=== PATIENT | male | born 1955 | race Caucasian/White ===

== ENCOUNTER → 2016-11-16 | Outpatient (CLI) | payer OTHER ==
[~2016-11-16] MED LIST: LISI-461 PO; SILD1TAB11 PO; VTMB12UNK
== END | disposition home or self-care (01) ==
LOC: C.LAB 17:41
DX: Z02.83 Encounter for blood-alcohol and blood-drug test (principal)

== ENCOUNTER 2021-10-10 06:12 | Observation (INO) ==
--- NOTE | 2021-10-02 16:01 | Anesthesiology Consultation ---
Date of Service October 02, 2021 Assessment & Plan (1) Encounter for pre-operative examination: - COVID screening: Per assessment on 10/02: No known COVID-19 positive contacts or current COVID-19 related symptoms. Travel screen negative. Patient vaccinated. Surgeon arranging preop COVID testing. Awaiting results. - PCP office visit (08/16/21): "CHEST: clear to auscultation bilaterally, no rales or wheezing.. GI symptoms-etiology is at this point unclear. He could have a mild soldier ring chronic diverticulitis although that would Um mean that he did not have any diverticulitis in May when he had colonoscopy. Another possibility is a chronic infection. It would be unusual for C difficile given the intermittent nature but is still needs to be ruled out. Um other infectious agents also to be ruled out." - S/P Open Right Inguinal hernia repair (12/04/20): Grade view 2, MAC#4, ETT 7.5 at [facility]. No issues noted per post-op anesthesia progress note. Chart Review Chart Review: Acceptable Risk for Surgery (pending evaluation AM DOS) and Patient NOT seen in Pre Admission Testing History Surgery Operation Date: 10/10/21 09:55 Proposed Procedures p Laparoscopic Bowel Resection, Possible Open - Noé Dumont MD, FACS Height/Weight Height: 5 ft 11.5 in Weight: 89.811 kg Allergies Allergy/AdvReac Type Severity Reaction Status Date / Time Sulfa (Sulfonamide AdvReac Mild Alison bar Verified 10/02/21 14:40 Antibiotics) sulfamethoxazole AdvReac Mild Alison bar Verified 10/02/21 14:40 [From Bactrim] trimethoprim [From Bactrim] AdvReac Mild Alison bar Verified 10/02/21 14:40 Medications Home Medications Medication Instructions Recorded Confirmed Last Taken lisinopril 20 mg tablet 20 mg PO QAM 11/14/20 10/02/21 12/02/20 07:00 escitalopram oxalate 5 mg tablet 15 mg PO QAM 09/24/21 10/02/21 Unknown (Lexapro) Past Medical History Medical History (Updated 10/02/21 @ 16:17 by Hina Ford) 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 No issues noted per post-op anesthesia progress note. Status post surgery Left salivary gland removal (2013) Social History Smoking Status: Current every day smoker tobacco type: cigarettes Smoking cigarettes per day: 15/day Do You Dip or Chew Tobacco: No Hx Alcohol Use: No Hx Substance Use: No substance use type: does not use Lab Results Anesthesia Preop Results Results Anesthesia Widget: WBC 8.69 K/ul (4.8-10.8) 09/30/21 Hgb 15.7 g/dl (14.0-18.0) 09/30/21 Hct 46.2 % (40.1-51.0) 09/30/21 Plt 192 K/uL (130-400) 09/30/21 Na 138 mmol/L (136-145) 09/30/21 K 4.2 mmol/L (3.5-5.1) 09/30/21 Cl 105 mmol/L (98-107) 09/30/21 CO2 26 mmol/L (21-32) 09/30/21 BUN 13 mg/dl (6-23) 09/30/21 Creat 0.78 mg/dl (0.6-1.4) 09/30/21 Glucose Level 113 mg/dl (70-99(Fasting)) H 09/30/21 Testing Electrocardiogram Date: 09/30/21 NSR with sinus arrhythmia at 67bpm. RBBB. Chest X-Ray Date: 09/30/21 FINDINGS: The lungs are hyperexpanded with mild apical predominant emphysematous changes. No pneumothorax. No pleural fusions. The heart is normal in size. Mild interstitial thickening at the lung bases favors vascular crowding. No new focal lung consolidations to suggest pneumonia. No evidence for pulmonary edema. IMPRESSION: No significant change compared to the prior study. No acute process. Mild emphysema again noted.
[~2021-10-10 06:12] MED LIST changes: -LISI-461 PO; +LR 15ML/HR IV SCH; -SILD1TAB11 PO; -VTMB12UNK
--- NOTE | 2021-10-10 07:44 | History & Physical Bridge Note ---
Date of Service October 10, 2021 History & Physical Bridge Note I have examined the patient, reviewed the History & Physical and in the interval since the performance of the History & Physical I have noted the following changes of clinical significance: no changes noted All questions answered Significant other asked if I have her operated on a carcinoid before I looked at her and told her that I have been in surgery 50 years The patient understood
[2021-10-10] MEDS ORDERED: fentaNYL citrate 100 MCG/2 ML VIAL ONE ×3 (07:52→10:57)
[2021-10-10] MEDS ORDERED: LIDOCAINE 2% MPF LOCAL 5 ML VIAL INFIL ONE (07:52)
[2021-10-10] MEDS ORDERED: DEXAMETHASONE SOD INJ 4 MG/ML VIAL ONE (07:52)
[2021-10-10] MEDS ORDERED: ROCURONIUM BROMIDE 10 MG/ML 5 ML VIAL IV ONE ×9 (07:52→11:02)
[2021-10-10] MEDS ORDERED: ONDANSETRON INJ 2 MG/ML 2 ML VIAL ONE (07:52)
[2021-10-10] MEDS ORDERED: PROPOFOL IV EMULSION 10 MG/ML 20 ML VIAL IV ONE (07:52)
[2021-10-10] MEDS ORDERED: BUPIVACAINE 0.5 % 5 MG/1 ML MPF 30ML VIAL ONE (07:59)
[2021-10-10] MEDS ORDERED: LABETALOL HCL IV 5 MG/ML 20ML IV PRN (08:48)
[2021-10-10] MEDS ORDERED: ATROPINE SULFATE 0.1 MG/ML 10ML SYR IV PRN (08:48)
[2021-10-10] MEDS ORDERED: PHENYLEPHRINE 100MCG/ML 5ML SYR IV PRN (08:48)
[2021-10-10] MEDS ORDERED: ONDANSETRON INJ 2 MG/ML 2 ML VIAL IV PRN ×2 (08:48→14:18)
[2021-10-10] MEDS ORDERED: MEPERIDINE HCL 25 MG/ML CARP/VIAL IV PRN (08:48)
[2021-10-10] MEDS ORDERED: ePHEDrine sulfate 50 MG/ML AMP IV PRN (08:48)
[2021-10-10] MEDS ORDERED: ePHEDrine sulfate 50 MG/ML AMP ONE (08:49)
[2021-10-10] MEDS ORDERED: SUGAMMADEX SODIUM 200 MG/2 ML VIAL IV ONE (09:05)
[2021-10-10] MEDS ORDERED: ceFAZolin 2000MG 2,000 MG/15 ML SYR IV ONE (10:16)
[2021-10-10] MEDS ORDERED: PHENYLEPHRINE 100MCG/ML 5ML SYR ONE (10:21)
--- NOTE | 2021-10-10 11:49 | Post Operative Brief Note ---
PG Immediate Post Op with CF Date of Surgery October 10, 2021 Pre & Post Diagnosis Operation Date: 10/10/21 08:15 Pre-Op Diagnosis: Bowel Lesion Terminal Ileum Post-Op Diagnosis: Bowel Lesion Terminal Ileum I identified the patient and participated in the time-out.: Yes Procedure Operation Date: 10/10/21 08:15 Actual Procedures p Laparoscopic Assisted Small Bowel Resection with Primary Anastomsis and Biopsy Left External Iliac Node(Not Applicable) - Noé Dumont MD, FACS Surgeon Noé Dumont MD, FACS Card Hand grecia kendrick Estimated Blood Loss 50 Findings Consistent with Post-Op Diagnosis Specimens Specimen Description: Culture 1: Urine A: Small Bowel Long Suture Mesenteric Short Suture Intraluminal B: Small Bowel Long Suture Line of Resection Distal to the Previous Line of Resection C: Small Bowel Proximal Line of Resection Frozen A: Left Iliac Node Drains Sorenson Catheter (inserted after induction of anesthesia by Stephenie Quezada D.O. without difficulty)
--- NOTE | 2021-10-10 12:14 | Operative Report ---
PG Post Operative Report Pre & Post Diagnosis Operation Date: 10/10/21 08:15 Pre-Op Diagnosis: Bowel Lesion Terminal Ileum Post-Op Diagnosis: Bowel Lesion Terminal Ileum I identified the patient and participated in the time-out.: Yes Procedure Operation Date: 10/10/21 08:15 Actual Procedures p Laparoscopic Assisted Small Bowel Resection with Primary Anastomsis and Biopsy Left External Iliac Node(Not Applicable) - Noé Dumont MD, FACS The patient was brought into the operating theater supine position general endotracheal anesthesia systemic antibiotics on board Sorenson catheter inserted the abdomen was prepped Betadine solution properly draped a timeout was had patient was identified this point we made a small incision supraumbilically above the transverse incision that he has an umbilical hernia repair years ago and through the abdomen a Veress needle followed by CO2 followed by the scope this point intra-abdominal pressure was held at about 15 mmHg using the camera was circumferentially looped on the anterior abdominal wall with no obvious implants that we were suspicious that this may been a carcinoid and possibly metastatic the liver grossly was normal on the surface there was no implants went down towards the pelvis what we could see there was no implants although radiographically there was not implant in the left pelvic area then using a grasper and a 5 mm right upper quadrant port we elevated the omentum and retracted cephalad we then were able to identify the small bowel just inferior to the transverse colon and elevating the small bowel we can see indentation in the small bowel and the mesentery to it having a sclerosing pattern this was narrowed area where radiographically seem to have an intraluminal growth and with the spindle cell appearance of the mesenteric node suspicious for a carcinoid at this point I freed up the terminal ileum dividing the white line of Toldt to mobilize the cecum so we can evaluate and palpate that area since radiographically there may have been something intraluminal and terminal ileum having done this I elected to convert to an open procedure which we made an incision just to the right of the umbilicus and extending in the midline retirement up to the xiphoid we entered the peritoneal cavity and at this point we were able to easily appreciate and extracted out of the abdomen the loop of bowel that had the intraluminal growth and on the mesenteric surface we can see some retraction of the serosa as a spindles process once we extracted this completely having identified the area marked it with a suture we then palpated from cecum around the small bowel all the way to the ligament of Treitz palpating at and milking it to see if there was another intraluminal lesions that we cannot appreciate in further exploring the abdomen patient has a hard mass at the sigmoid rectal area he did not feel suspicious it almost felt if he had a pair inflammatory process from diverticular nature in fact he had a CAT scan just about a month or so ago that did not show any mass there the area that we felt was approximately 6 cm in size diameter and appeared to be on the mesenteric surface of the sigmoid rectal junction we extended the incision further in clinic umbilically and were able to identify an area that had been seen by CAT scan and the left iliac chain it was sclerosed to the peritoneum and retroperitoneal area the size about a centimeter and a half we then were able to extract this and sent for frozen section and and confirmed on a size and history and the presentation that this was likely a metastatic carcinoid at this point we had extracted the loop of bowel which was in the mid jejunal area out of the abdomen used a WARD we were able to resect the small bowel approximately 10 to 15 cm proximal the area that we palpated intraluminally and distally and about 20 cm in the same fashion we used WARD stapler to divide the small bowel that we scored the mesenteric to that segment all the way down to almost to the root of the mesentery divided with hemostats ligated with 2-0 silk in this area we could feel that sclerosed area and also felt a palpable node which is about 2 cm and this would be included with the specimen the 2 ends of the staple line was then oversewn with 3-0 silk suture after we closed the mesentery with interrupted 3-0 silk we created a [id number] anastomosis using 3-0 silk i interrupted the outer layer and 3-0 chromic in the layer only were done I was unhappy with the distal aspect of the small bowel on the anastomosis it appeared viable but it was slightly congested we placed it in the abdomen and seem to be improved but I was concerned about this therefore I took down the anastomosis and we did an area that felt more viable resecting more of the small bowel with a WARD oversewn the staple line the end and a [id number] anastomosis surgery was done with 3-0 silk outer layer 3-0 chromic in a layer we closed the mesentery to avoid any openings this anastomosis much much better we returned into the abdomen at this point labs were all extended and NG tube was positioned in the stomach I could palpated at about 60 cm from the nasal opening and the abdomen was closed with a #1 PDS starting 1 cephalad and 1 code that time the middle 2-0 Vicryl subcutaneous tissue amna for skin edges dressing was applied procedure was tolerated well by the patient estimate blood loss 50 cc the patient was taken recovery room in good condition Addendum Antonietta Manriquez present throughout the procedure and helped the retraction and exposure wound closure Addendum spoke with her significant other Germain in the waiting area and described to her the procedure the postoperative care including having oncology see him all questions were answered and I specifically mention that I could palpate something in the sigmoid colon that I would review with the radiologist the latest CAT scan Surgeon Noé Dumont MD, FACS Qualitative Executive Researcher grecia kendrick Estimated Blood Loss 50 Findings Consistent with Post-Op Diagnosis 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 Any exceptions are noted below.
[2021-10-10] MEDS: fentaNYL citrate 100 MCG/2 ML VIAL IV PRN ×4 (12:21→12:36)
[2021-10-10] MEDS: HYDROmorphone INJ 1 MG/ML SYRINGE IV PRN ×8 (12:41→13:44)
[2021-10-10] MEDS ORDERED: ACETAMINOPHEN 1000 MG/100 ML IV IV ONE (13:02)
[2021-10-10] MEDS ORDERED: ACETAMINOPHEN 1,000 MG/100 ML VIAL IV STA (13:06)
--- NOTE | 2021-10-10 14:07 | Anesthesiology Progress Note ---
Date of Service October 10, 2021 Anesthesia Post Procedure Vital Signs Vital Signs: Temp Pulse Pulse Resp BP Pulse Ox O2 Del Method 10/10/21 14:00 82 18 147/90 H 91 Nasal Cannula 10/10/21 13:50 36.4 C L 85 18 144/88 H 91 Nasal Cannula 10/10/21 13:40 85 17 147/90 H 90 Nasal Cannula 10/10/21 13:30 85 18 144/87 H 90 Oxymask 10/10/21 13:20 80 21 139/84 90 Oxymask 10/10/21 13:10 85 20 145/88 H 90 Oxymask 10/10/21 13:00 36.6 C 88 19 142/82 H 91 Oxymask 10/10/21 12:50 87 19 145/92 H 93 Oxymask 10/10/21 12:40 84 18 129/94 92 Oxymask 10/10/21 12:30 84 22 151/82 H 91 Oxymask 10/10/21 12:20 84 22 124/61 91 Oxymask 10/10/21 12:10 87 18 151/78 H 90 Oxymask 10/10/21 12:02 36.1 C L 80 18 124/66 92 Oxymask 10/10/21 06:28 36.5 C 97 H 20 148/87 H 92 Room Air O2 Flow Rate 10/10/21 14:00 4 10/10/21 13:50 4 10/10/21 13:40 4 10/10/21 13:30 5 10/10/21 13:20 5 10/10/21 13:10 5 10/10/21 13:00 5 10/10/21 12:50 8 10/10/21 12:40 10 10/10/21 12:30 10 10/10/21 12:20 10 10/10/21 12:10 10 10/10/21 12:02 6 10/10/21 06:28 Pain Intensity Abdomen: Pain Intensity: 2 Transfer of Care Handoff Completed per policy Notes Mental Status: alert / awake / arousable Patient Amnestic to Procedure: Yes Nausea / Vomiting: adequately controlled Pain: adequately controlled Airway Patency, RR, SpO2: stable & adequate BP & HR: stable & adequate Hydration State: stable & adequate Anesthetic Complications: no major complications apparent and Pt Satisfied with anesthetic care
[2021-10-10] MEDS: MoRPHine SULFATE 4 MG/ML 1 ML CARP\\VIAL IV PRN ×4 (14:33→22:16)
[2021-10-10] MEDS: LACTATED RINGER'S 1,000 ML IV SCH ×2 (15:00→22:11)
[2021-10-10] MEDS: ACETAMINOPHEN 1000 MG/100 ML IV IV SCH ×2 (15:03→22:10)
[2021-10-10] MEDS: cefOXitin 2,000 MG in DEXTROSE 5% 50 ML IV SCH ×2 (15:34→20:37)
[2021-10-10] MEDS: HEPARIN SOD 5,000 UNIT/0.5 ML VIAL SQ SCH (20:38)
[2021-10-11] MEDS: MoRPHine SULFATE 4 MG/ML 1 ML CARP\\VIAL IV PRN ×9 (01:47→22:23)
[2021-10-11] MEDS: cefOXitin 2,000 MG in DEXTROSE 5% 50 ML IV SCH ×2 (01:50→07:40)
[2021-10-11] MEDS: HEPARIN SOD 5,000 UNIT/0.5 ML VIAL SQ SCH ×3 (05:49→21:32)
[2021-10-11] MEDS: ACETAMINOPHEN 1000 MG/100 ML IV IV SCH ×3 (05:53→21:32)
[2021-10-11] MEDS: LACTATED RINGER'S 1,000 ML IV SCH ×2 (05:53→17:41)
[2021-10-11 06:19] LABS: Basophils # (auto) 0.04 K/uL (0-0.2); Basophils % (auto) 0.3 %; Eosinophils # (auto) 0.09 K/uL (0-0.50); Eosinophils % (auto) 0.7 %; Hematocrit (blood only) 43.9 % (40.1-51.0); Hemoglobin 14.7 g/dl (14.0-18.0); Immature Granulocytes # (auto) 0.08 K/uL (0.00-0.02); Immature Granulocytes % (auto) 0.6 %; Lymphocytes # (auto) 0.88 K/uL (1.2-3.4); Lymphocytes % (auto) 6.7 %; Mean Corpuscular Hemoglobin 31.1 pg (25.0-34.0); Mean Corpuscular Hgb Conc 33.5 g/dL (32.0-36.0); Mean Corpuscular Volume 92.8 fL (80.0-100.0); Monocytes # (auto) 1.15 K/uL (0.24-0.82); Monocytes % (auto) 8.8 %; Neutrophils % (auto) 82.9 %; Platelet Count 207 K/uL (130-400); RDW Coefficient of Variation 13.8 % (11.5-14.5); RDW Standard Deviation 47.1 fL (36.4-46.3); Red Blood Count 4.73 M/uL (4.63-6.08); White Blood Count 13.04 K/ul (4.8-10.8)
[2021-10-11 06:47] LABS: BUN Creatinine Ratio 16.4 (10-20); Calcium 8.5 mg/dl (8.5-10.1); Creatinine Clr Calc Pharmacy 110.5 ml/min; Est GFR (African American) 113.6 ml/min; Potassium 4.4 mmol/L (3.5-5.1)
--- NOTE | 2021-10-11 07:33 | Surgery Progress Note ---
Date of Service October 11, 2021 Assessment & Plan (1) Carcinoid tumor: Plan: POD#1 status post small bowel resection for carcinoid tumor biopsy of left iliac chain node consistent with metastatic carcinoid tumor Operative findings were discussed with the patient including the fact that we had felt a mass in the sigmoid colon that it was not there by CAT scan preoperatively I did review the CAT scan again with the radiologist after the procedure and radiographically this 6 cm hard mass in the sigmoid colon was not visualized by CAT scan of approximate month or so ago My suspicion is that the patient may have had a localized diverticular problem or possibly perforation since he has extensive diverticulosis throughout the colon He had colonoscopy approximately 2 years ago will free of any intraluminal pathology At this point we will remove the NG tube start him on clear liquids leave the Sorenson and at least till evening since we are collecting for 24-hour 5-HIAA and the collection should finish about 16:40 today [facility] surgeon covering the weekend Admission and Anticipated Discharge Date Admission Date: October 10, 2021 Subjective Patient resting comfortably without any issues denies any abdominal pain the only thing is complaining of a little sore throat Physical Exam Physical Exam: Alert coherent resting comfortably in bed NG tube slight old blood around the entry in the nasal orifice The abdomen is benign dressing intact incision free of any drainage or minimal ecchymosis Results & Data ([facility] [place]) Vital Signs (Past 12 Hours) Vital Signs Temp Pulse Resp BP Pulse Ox O2 Del Method O2 Flow Rate 10/11/21 03:23 36.9 C 76 16 128/71 95 Room Air 10/10/21 22:45 Nasal Cannula 2 10/10/21 22:23 37.1 C 89 16 143/80 H 90 Nasal Cannula 2 PG Care Time/CCT Total # of Minutes Spent Total Time Spent with Patient: Total time spent is greater than 50% in coordination of care (as documented) at patient's floor/unit and/or counseling patient: Coding Level of Care Code None 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
[2021-10-12] MEDS: MoRPHine SULFATE 4 MG/ML 1 ML CARP\\VIAL IV PRN ×7 (01:48→23:05)
[2021-10-12] MEDS: LACTATED RINGER'S 1,000 ML IV SCH ×3 (01:49→22:02)
[2021-10-12] MEDS: ACETAMINOPHEN 1000 MG/100 ML IV IV SCH ×3 (05:57→22:03)
[2021-10-12] MEDS: HEPARIN SOD 5,000 UNIT/0.5 ML VIAL SQ SCH ×3 (05:59→22:05)
[2021-10-12 06:01] LABS: Basophils # (auto) 0.02 K/uL (0-0.2); Basophils % (auto) 0.2 %; Eosinophils # (auto) 0.35 K/uL (0-0.50); Eosinophils % (auto) 3.5 %; Hematocrit (blood only) 41.3 % (40.1-51.0); Hemoglobin 13.7 g/dl (14.0-18.0); Immature Granulocytes # (auto) 0.05 K/uL (0.00-0.02); Immature Granulocytes % (auto) 0.5 %; Lymphocytes # (auto) 1.37 K/uL (1.2-3.4); Lymphocytes % (auto) 13.8 %; Mean Corpuscular Hemoglobin 31.2 pg (25.0-34.0); Mean Corpuscular Hgb Conc 33.2 g/dL (32.0-36.0); Mean Corpuscular Volume 94.1 fL (80.0-100.0); Mean Platelet Volume 10.3 fL (9.4-12.4); Monocytes # (auto) 0.88 K/uL (0.24-0.82); Monocytes % (auto) 8.9 %; Neutrophils # (auto) 7.23 K/uL (1.4-6.5); Neutrophils % (auto) 73.1 %; Platelet Count 178 K/uL (130-400); RDW Standard Deviation 49.3 fL (36.4-46.3); Red Blood Count 4.39 M/uL (4.63-6.08)
[2021-10-12 06:32] LABS: BUN Creatinine Ratio 9.8 (10-20); Calcium 8.7 mg/dl (8.5-10.1); Creatinine Clr Calc Pharmacy 132.3 ml/min; Est GFR (African American) 122.3 ml/min; Est GFR (Non-African American) 105.5 ml/min; Potassium 4.1 mmol/L (3.5-5.1)
--- NOTE | 2021-10-12 09:07 | Surgery Progress Note ---
Date of Service October 12, 2021 Assessment & Plan (1) Carcinoid tumor: Plan: POD #2 remove barragan advance diet ambulate IVF to 77 Admission and Anticipated Discharge Date Admission Date: October 10, 2021 Subjective pain controlled eating well passing flatus Review of Systems Constitutional: no fever and no chills Respiratory: no dyspnea Cardiovascular: no chest pain Gastrointestinal: + abdominal pain (improving post op pain) Physical Exam Constitutional: WD/WN, vitals as above Neck: trachea midline Respiratory: normal respiratory effort, lungs clear to auscultation Cardiovascular: RRR, no murmur, no edema Gastrointestinal (Abdomen): Inspection/Auscultation: + abdomen distended, normal bowel sounds and + abdominal surgical incision (dry dressing in place) Percussion/Palpation: + abdomen tender and abdomen soft; no guarding and abdomen not rigid Musculoskeletal: Head/Neck/Chest: normocephalic and head atraumatic Results & Data ([facility]) Vital Signs (Past 12 Hours) Vital Signs Temp Pulse Resp BP Pulse Ox O2 Del Method O2 Flow Rate 10/12/21 07:20 Nasal Cannula 2 10/12/21 07:05 37.3 C 72 18 132/85 95 Room Air 10/12/21 01:47 37.5 C 10/11/21 21:40 93 Nasal Cannula 3 10/11/21 21:37 37.7 C H 90 16 117/73 87 L Room Air
[2021-10-12] MEDS: ALUMINUM/MAGNESIUM/SIMETH (MAALOX MAX) 30 ML UDC PO PRN (18:05)
[2021-10-13] MEDS: MoRPHine SULFATE 2 MG/ML CARP IV PRN ×4 (04:30→20:02)
[2021-10-13] MEDS: ACETAMINOPHEN 1000 MG/100 ML IV IV SCH (06:06)
[2021-10-13] MEDS: HEPARIN SOD 5,000 UNIT/0.5 ML VIAL SQ SCH ×3 (06:08→22:45)
[2021-10-13] MEDS: ALUMINUM/MAGNESIUM/SIMETH (MAALOX MAX) 30 ML UDC PO PRN ×2 (07:17→13:24)
[2021-10-13 07:24] LABS: Basophils # (auto) 0.01 K/uL (0-0.2); Basophils % (auto) 0.1 %; Eosinophils % (auto) 4.3 %; Hematocrit (blood only) 41.9 % (40.1-51.0); Hemoglobin 13.7 g/dl (14.0-18.0); Immature Granulocytes # (auto) 0.04 K/uL (0.00-0.02); Immature Granulocytes % (auto) 0.4 %; Lymphocytes # (auto) 1.04 K/uL (1.2-3.4); Lymphocytes % (auto) 11.2 %; Mean Corpuscular Hemoglobin 31.2 pg (25.0-34.0); Mean Corpuscular Hgb Conc 32.7 g/dL (32.0-36.0); Mean Corpuscular Volume 95.4 fL (80.0-100.0); Mean Platelet Volume 10.7 fL (9.4-12.4); Monocytes # (auto) 0.64 K/uL (0.24-0.82); Monocytes % (auto) 6.9 %; Neutrophils # (auto) 7.17 K/uL (1.4-6.5); Neutrophils % (auto) 77.1 %; Platelet Count 177 K/uL (130-400); RDW Coefficient of Variation 13.9 % (11.5-14.5); RDW Standard Deviation 49.1 fL (36.4-46.3); Red Blood Count 4.39 M/uL (4.63-6.08)
[2021-10-13 08:00] LABS: BUN Creatinine Ratio 9.7 (10-20); Creatinine Clr Calc Pharmacy 130.2 ml/min; Est GFR (African American) 121.5 ml/min; Est GFR (Non-African American) 104.8 ml/min; Potassium 3.8 mmol/L (3.5-5.1)
--- NOTE | 2021-10-13 10:12 | Surgery Progress Note ---
Date of Service October 13, 2021 Assessment & Plan (1) Carcinoid tumor: Plan: continue clears and IVF at 77 no progress with GI function ambulate good pain control Admission and Anticipated Discharge Date Admission Date: October 10, 2021 Subjective pain controlled still only a little flatus 24 hr urine still pending Review of Systems Constitutional: no fever, no chills and no anorexia Respiratory: no cough and no dyspnea Cardiovascular: no chest pain Gastrointestinal: + abdominal pain; no nausea and no vomiting Genitourinary: no dysuria Integumentary: no rash and no lesions Neurologic: no localized weakness and no generalized weakness Psychiatric: no behavioral changes Physical Exam Constitutional: WD/WN, vitals as above Eyes: PERRL, conjunctivae normal, anicteric sclerae ENMT: external ear and nose normal, oropharynx normal Neck: trachea midline Respiratory: normal respiratory effort, lungs clear to auscultation Cardiovascular: RRR, no murmur, no edema Gastrointestinal (Abdomen): Inspection/Auscultation: abdomen normal to inspection, + abdomen distended, normal bowel sounds and + abdominal surgical incision Percussion/Palpation: + abdomen tender and abdomen soft; no guarding and abdomen not rigid Musculoskeletal: Head/Neck/Chest: normocephalic and head atraumatic Results & Data ([facility]) Vital Signs (Past 12 Hours) Vital Signs Temp Pulse Resp BP Pulse Ox O2 Del Method O2 Flow Rate 10/13/21 07:52 36.6 C 77 16 123/74 91 10/13/21 07:20 Nasal Cannula 2 10/12/21 23:40 37.5 C 93 H 18 127/78 90 Room Air
[2021-10-13] MEDS: LACTATED RINGER'S 1,000 ML IV SCH (11:17)
[2021-10-14] MEDS: LACTATED RINGER'S 1,000 ML IV SCH ×2 (00:21→12:17)
[2021-10-14] MEDS: MoRPHine SULFATE 2 MG/ML CARP IV PRN (02:58)
[2021-10-14] MEDS: HEPARIN SOD 5,000 UNIT/0.5 ML VIAL SQ SCH ×3 (06:36→21:43)
[2021-10-14] MEDS: oxyCODONE/ACETAMINOPHEN 5mg/325mg TAB PO PRN ×4 (08:35→22:35)
[2021-10-14 08:36] LABS: Basophils # (auto) 0.03 K/uL (0-0.2); Basophils % (auto) 0.4 %; Eosinophils # (auto) 0.53 K/uL (0-0.50); Eosinophils % (auto) 6.3 %; Hematocrit (blood only) 42.7 % (40.1-51.0); Hemoglobin 14.1 g/dl (14.0-18.0); Immature Granulocytes # (auto) 0.03 K/uL (0.00-0.02); Immature Granulocytes % (auto) 0.4 %; Lymphocytes # (auto) 1.29 K/uL (1.2-3.4); Lymphocytes % (auto) 15.4 %; Mean Corpuscular Hemoglobin 31.1 pg (25.0-34.0); Mean Corpuscular Volume 94.3 fL (80.0-100.0); Mean Platelet Volume 9.9 fL (9.4-12.4); Monocytes # (auto) 0.72 K/uL (0.24-0.82); Monocytes % (auto) 8.6 %; Neutrophils # (auto) 5.76 K/uL (1.4-6.5); Neutrophils % (auto) 68.9 %; Platelet Count 197 K/uL (130-400); RDW Standard Deviation 48.2 fL (36.4-46.3); Red Blood Count 4.53 M/uL (4.63-6.08); White Blood Count 8.36 K/ul (4.8-10.8)
[2021-10-14 08:58] LABS: BUN Creatinine Ratio 8.2 (10-20); Calcium 9.3 mg/dl (8.5-10.1); Creatinine Clr Calc Pharmacy 110.5 ml/min; Est GFR (African American) 113.6 ml/min; Potassium 3.8 mmol/L (3.5-5.1)
--- NOTE | 2021-10-14 09:25 | Surgery Progress Note ---
Date of Service October 14, 2021 Assessment & Plan (1) Carcinoid tumor: Plan: POD 4 partial small bowel resection bowel function returning although will check KUB given distention keep on full liquids for today seen with Dr. Dumont Admission and Anticipated Discharge Date Admission Date: October 10, 2021 Supervising Physician Co-Signing Physician Notes KUB noted prox small bowel distention likely prox to anastomosis suspect edema at that site will back off oral intake to clears Subjective multiple loose BMs, tolerating full liquids, no further nausea Physical Exam Constitutional: WD/WN, vitals as above Gastrointestinal (Abdomen): Inspection/Auscultation: + abdomen distended and + abdominal surgical incision (dry) Percussion/Palpation: abdomen soft Results & Data ([facility]) Vital Signs (Past 12 Hours) Vital Signs Temp Pulse Resp BP Pulse Ox O2 Del Method 10/14/21 08:44 Room Air 10/14/21 07:51 36.8 C 83 16 149/93 H 94 10/13/21 23:05 36.9 C 90 16 124/70 96 Room Air PG Care Time/CCT Total # of Minutes Spent Total Time Spent with Patient: Total time spent is greater than 50% in coordination of care (as documented) at patient's floor/unit and/or counseling patient: Coding Level of Care Code None 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
--- NOTE | 2021-10-14 12:31 | XRay Report ---
XR KUB/Abdomen 1 view CLINICAL HISTORY: abd distention TECHNIQUE: 1 view of the abdomen was obtained. Comparison: None available at the time of this dictation. FINDINGS: The surgical amna are seen. The osseous structures are grossly unremarkable. No evidence of small bowel obstruction. There is gaseous distention of the colon. Small stool burden is seen. IMPRESSION: Small stool burden with gaseous distention of the colon. No evidence of small bowel obstruction. ACT 112: Negative or not required by law. Electronically signed by: Kb Thurman M.D. 10/14/2021 12:29 PM
[2021-10-15] MEDS: LACTATED RINGER'S 1,000 ML IV SCH ×2 (01:37→17:39)
[2021-10-15] MEDS: oxyCODONE/ACETAMINOPHEN 5mg/325mg TAB PO PRN ×4 (03:04→18:35)
[2021-10-15] MEDS: HEPARIN SOD 5,000 UNIT/0.5 ML VIAL SQ SCH ×3 (05:35→21:19)
--- NOTE | 2021-10-15 07:10 | Surgery Progress Note ---
Date of Service October 15, 2021 Assessment & Plan (1) Carcinoid tumor: Plan: POD#5 overall the patient is doing much better we will increase his diet to full liquid if he tolerates it well recommend that he go on a low fiber diet like to keep him here another 24 hours to make sure that his GI function is resolved The colonic gas that we saw on the KUB going down to the sigmoid colon at the time of surgery I felt a mass on the sigmoid colon which did not show up on a CAT scan that he had prior to surgery but yesterday the patient's home he did a few days before he came into the hospital he had a lot of diarrhea and whether or not there was a flareup of her diverticular problem accounting for the mass in the sigmoid area Of note the patient had colonoscopy 2 years ago at this time no need to repeated The path report and 5 HIAA results pending POD 4 partial small bowel resection bowel function returning although will check KUB given distention keep on full liquids for today seen with Dr. Dumont Admission and Anticipated Discharge Date Admission Date: October 11, 2021 Subjective Had a good day yesterday no nausea tolerated clear liquids fine taken Percocet for pain and that is sufficient past significant mount of flatus in the belly feels softer Physical Exam Physical Exam: Alert coherent without any issues The abdomen is much softer but still with distended incision is solid no drainage amna intact Results & Data ([facility]) Vital Signs (Past 12 Hours) Vital Signs Temp Pulse Resp BP Pulse Ox O2 Del Method 10/15/21 05:38 36.7 C 75 16 155/87 H 92 Room Air 10/14/21 22:16 36.8 C 84 18 128/63 92 Room Air Diagnostic Findings I reviewed again the KUB from yesterday and initially thought it was a small bowel distention but apparently 2 views were taken that I only saw 1 and appears to be colonic gas going down to the sigmoid area PG Care Time/CCT Total # of Minutes Spent Total Time Spent with Patient: Total time spent is greater than 50% in coordination of care (as documented) at patient's floor/unit and/or counseling patient: Coding Level of Care Code None 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
[2021-10-15] MEDS: ALUMINUM/MAGNESIUM/SIMETH (MAALOX MAX) 30 ML UDC PO PRN (19:36)
[2021-10-16] MEDS: oxyCODONE/ACETAMINOPHEN 5mg/325mg TAB PO PRN ×3 (02:01→12:16)
[2021-10-16] MEDS: HEPARIN SOD 5,000 UNIT/0.5 ML VIAL SQ SCH (05:47)
--- NOTE | 2021-10-16 06:47 | Surgery Progress Note ---
Date of Service October 16, 2021 Assessment & Plan (1) Carcinoid tumor: Plan: POD#6 continues to improve less abdominal discomfort would like more to eat he is tolerating liquids yesterday without any difficulty He states that his belly is normally distended The path report noted and discussed with patient we will make oncology referral as an outpatient gave patient the option of [facility] or [facility] oncology he will decide 5-HIAA results are still pending At this point will increase the diet to low fiber diet we discussed this with the patient that he should continue with that until his stools normalize he states they are beginning become formed at this time once it becomes a normal state that he should go to a high-fiber diet We will check another KUB today If patient tolerates the diet nothing remarkable KUB could be discharged later today no driving no lifting anything heavier than 10 pounds he may shower and we will see the patient in our office next Thursday Regarding analgesics we will give a few Percocets but Motrin or Advil should be enough at this time POD#5 overall the patient is doing much better we will increase his diet to full liquid if he tolerates it well recommend that he go on a low fiber diet like to keep him here another 24 hours to make sure that his GI function is resolved The colonic gas that we saw on the KUB going down to the sigmoid colon at the time of surgery I felt a mass on the sigmoid colon which did not show up on a CAT scan that he had prior to surgery but yesterday the patient's home he did a few days before he came into the hospital he had a lot of diarrhea and whether or not there was a flareup of her diverticular problem accounting for the mass in the sigmoid area Of note the patient had colonoscopy 2 years ago at this time no need to repeated The path report and 5 HIAA results pending POD 4 partial small bowel resection bowel function returning although will check KUB given distention keep on full liquids for today seen with Dr. Dumont Admission and Anticipated Discharge Date Admission Date: October 11, 2021 Subjective Feels better than yesterday ambulating the halls without any difficulty states some abdominal discomfort but much improved from yesterday continues to move his bowels although still liquid Physical Exam Physical Exam: Alert coherent resting comfortably in bed in no discomfort The abdomen is softer but still distended some ecchymosis around the incision the amna are intact no tenderness or guarding appreciated Results & Data ([facility]) Vital Signs (Past 12 Hours) Vital Signs Temp Pulse Resp BP BP Pulse Ox O2 Del Method 10/16/21 06:25 36.6 C 84 18 167/95 H 92 Room Air 10/15/21 21:47 36.9 C 82 20 124/76 92 Room Air PG Care Time/CCT Total # of Minutes Spent Total Time Spent with Patient: Total time spent is greater than 50% in coordination of care (as documented) at patient's floor/unit and/or counseling patient: Coding Level of Care Code None 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
[2021-10-16] MEDS ORDERED: IBUPROFEN 200 MG TAB PO PRN (06:49)
[2021-10-16] MEDS ORDERED: lisinopril 20 MG TAB PO SCH (10:00)
[2021-10-16 11:10] LABS: Hematocrit (blood only) 43.5 % (40.1-51.0); Hemoglobin 14.3 g/dl (14.0-18.0); Mean Corpuscular Hgb Conc 32.9 g/dL (32.0-36.0); Mean Corpuscular Volume 94.2 fL (80.0-100.0); Mean Platelet Volume 9.8 fL (9.4-12.4); Platelet Count 259 K/uL (130-400); RDW Standard Deviation 47.9 fL (36.4-46.3); Red Blood Count 4.62 M/uL (4.63-6.08); White Blood Count 8.47 K/ul (4.8-10.8)
--- NOTE | 2021-10-16 14:11 | XRay Report ---
XR KUB/Abdomen 1 view CLINICAL HISTORY: follow up bowel distention. COMPARISON STUDY: 10/14/2021 TECHNIQUE: 2 supine views of the abdomen FINDINGS: Compared to the previous examination, there is again mild gaseous distention of the colon. There is a gain no evidence for small bowel obstruction. There is no evidence for organomegaly or gross intra-ab dominal mass. No abnormal calcifications are seen along the course of the urinary tracts bilaterally. No acute osseous pathology. IMPRESSION: 1. Mild gaseous distention of the colon is again seen with no evidence for definite obstruction. 2. Findings are most characteristic of an ileus. ACT 112: Negative or not required by law. Electronically signed by: Enio Henning M.D. 10/16/2021 2:10 PM
[2021-10-18 00:51] LABS: 5-HIAA 1.3 mg/24 h (<=6.0); Creatinine, 24 hr Urine 1.66 g/24 h (0.50-2.15)
--- NOTE | 2021-10-21 12:08 | Discharge Summary ---
Date of Service October 16, 2021 Principal Diagnosis carcinoid tumor s/p small bowel resection Discharge Exam awake Constitutional no acute distress Gastrointestinal (Abdomen) Inspection/Auscultation: + abdomen distended and + abdominal surgical incision (c/d/i with amna and some surrounding ecchymosis) Percussion/Palpation: abdomen soft; abdomen nontender Discharge Data Allergies Allergy/AdvReac Type Severity Reaction Status Date / Time Sulfa (Sulfonamide AdvReac Mild Alison bar Verified 10/10/21 06:33 Antibiotics) sulfamethoxazole AdvReac Mild Alison bar Verified 10/10/21 06:33 [From Bactrim] trimethoprim [From Bactrim] AdvReac Mild Alison bar Verified 10/10/21 06:33 Procedures Performed Operation Date: 10/10/21 08:15 Actual Procedures p Laparoscopic Assisted Small Bowel Resection with Primary Anastomsis and Biopsy Left External Iliac Node(Not Applicable) - Noé Dumont MD, [facility] Hospital Course (1) Carcinoid tumor: This is a 66y M with a history of a small bowel mass, presumed to be carcinoid, who presented to the [facility] on 8/06/28 for surgical resection. The patient went to the OR with Dr. Dumont and ultimately underwent an exploratory laparotomy, with small bowel resection with anastomosis, and resection of lymph node. The patient tolerated the procedure well, see op note for full details. He recovered in the PACU and was transferred to the surgical nursing floor in stable condition with an NGT, barragan catheter, 24 hr post op abx, and IVF. He underwent a 24 hour urine collection for 5-HIAA testing. On POD#1 the patient NGT was removed and he was started on clear liquids. Barragan catheter removed after completion of 24 hour urine collection. Pain controlled with prn medication. On POD#2-#3 activity encouraged. He remained on subq heparin for DVT prophylaxis. He continued on a liquid diet while awaiting return of bowel function. Pain controlled. On POD#4 he began having some bowel function. His abdomen was a bit distended therefore remained on a liquid diet. KUB showed some colon distention without evidence of obstruction. On POD#5-#6 his abdominal distention improved. He continued to pass flatus and BMs. Diet was eventually advanced to low fiber of which he tolerated. Pain controlled on oral medications. Incision c/d/i. He was deemed stable for discharge to home on 10/16/21 with instructions to follow up in clinic with Dr. Dumont within 1 week. Total Time Total Time Spent Total Time Spent (In Minutes): 10 Discharge Plan Discharge Items Patient Disposition: Home - Self-Care Reason For Visit: Bowel Lesion Terminal Ileum Discharge Diagnosis: Partial small bowel resection Activity: As commented below Lifting: No more than 10 pounds Bathing Comment: OK to shower Driving/Machine Use: When pain free Non-emergency contact: Surgeon Call non-emergency contact if: you have any medication questions, your pain is not controlled, you have a fever, your temperature is above 101.5 and your wound has increased redness Follow-up/Referrals: Noé Dumont MD, FACS [Surgeon] - 10/22/21 1:15 pm (In 1 week, please call if you do not already have an appt) Pino Boudreaux MD [Primary Care Provider] - Diet: Low Fiber Addtl Attending Provider Instructions: Pending Studies at Discharge: No Stand-Alone Forms: [facility], Opioid Pain Management, Smoking Cessation Medications and DC Order Prescriptions: New ciprofloxacin HCl 500 mg tablet 500 mg PO BID Qty: 14 0RF oxycodone-acetaminophen [Percocet] 5-325 mg tablet 1 - 2 tab PO Q4H PRN (Reason: pain, initial therapy, max 6 daily) Qty: 15 0RF metronidazole 500 mg tablet 500 mg PO TID Qty: 21 0RF Continued escitalopram oxalate [Lexapro] 5 mg tablet 15 mg PO QAM lisinopril 20 mg Tablet 20 mg PO QAM Discharge Orders: Discharge Order (Routine); Ordered 10/16/21 Ordered By: Jon Porter/Other Patient Handouts: DVT Post Op Prevention Admission Data Admit Date/Time: 10/11/21 13:18 Attending Provider: Noé Dumont Admit Provider: Noé Dumont Primary Care Provider: Pino Boudreaux Other Interventions: Discharge Summary Assessment (RN) Last Done: 10/16/21 13:41 Coding Level of Care Code D/C DAY MANAGEMENT <30 MINS 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
== END 2021-10-16 14:28 | disposition home or self-care (01) ==
LOC: 3N 06:12 → ASU 06:12
DX: Z79.899 Other long term (current) drug therapy; Z85.46 Personal history of malignant neoplasm of prostate; C7A.019 Malignant carcinoid tumor of the small intestine, unspecified portion; Z90.79 Acquired absence of other genital organ(s); J44.9 Chronic obstructive pulmonary disease, unspecified; C7B.01 Secondary carcinoid tumors of distant lymph nodes; Z88.2 Allergy status to sulfonamides; K57.30 Diverticulosis of large intestine without perforation or abscess without bleeding; I10 Essential (primary) hypertension; F17.210 Nicotine dependence, cigarettes, uncomplicated; F41.9 Anxiety disorder, unspecified; Z53.31 Laparoscopic surgical procedure converted to open procedure; Z88.1 Allergy status to other antibiotic agents

== ENCOUNTER 2022-03-07 17:33 | Inpatient (IN) ==
--- NOTE | 2022-03-07 18:13 | Emergency Department Note ---
Impression & Plan Acute psychosis, Suicidal ideation ED Provider Note HISTORY OF PRESENT ILLNESS: Patient is a 66-year-old male presenting with confusion. 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 Police were called to the scene. Patient told the police that he needed to go home and "strap on my 9 mm to protect myself." Denies any suicidal ideation. He has a history of gastric cancer. He reports that he just wants to go home and denies acting abnormally or having any sort of confusion. He refuses to acknowledge to is out to get him. ROS: Constitutional: No fever, chills, or weakness Skin: No rash or diaphoresis HENT: No headaches or congestion Eyes: No vision changes Cardio: No chest pain, palpitations or leg swelling Respiratory: No cough, wheezing or shortness of breath GI: No nausea, vomiting, diarrhea, constipation : No dysuria, polyuria MSK: No joint or back pain Neuro: No loss of sensation, focal deficits, numbness, tingling +confusion Psychiatric: No mood changes PHYSICAL EXAM: Constitutional: Patient appears in no acute distress. HENT: Head: Normocephalic and atraumatic. Eyes: EOMI, PERRL Mouth/Throat: Mucous membranes moist. Neck: Trachea midline. Neck supple. Cardiovascular: RRR, No murmurs, rubs or gallops. Intact distal pulses. Pulmonary/Chest: No respiratory distress. Breath sounds clear and equal bilaterally. No wheezes or rales. Abdominal: BS +. Abdomen soft, no tenderness, rebound or guarding. Back: No midline spinal tenderness, no paraspinal tenderness, no CVA tenderness. Musculoskeletal: No edema, tenderness or deformity noted. Skin: Warm and dry. No rash, erythema, pallor or cyanosis Psychiatric: Patient appears well groomed. Makes fair poor eye contact. Speech is normal volume and rate. Thought process is tangential and difficult to redirect. Neurological: Alert. CN II-XII grossly intact, moving all extremities equally and fully. MDM: - Vitals signs showed tachycardia. - EKG negative for acute ischemic changes. - Laboratory workup grossly unremarkable. - CT head wo contrast negative for acute intracranial pathology. - COVID negative. - Patient requested his albuterol inhaler, tessalon ute and zofran while in ER. - Patient medically cleared. 302 signed by police and upheld by me. - Evaluated by psychiatric bilingual patient support caseworker. Bed search in process for inpatient psychiatric bed at this time. 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 No issues noted per post-op anesthesia progress note. 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 Feels Safe at Home: Yes Assistive Devices: None Allergies Allergies Allergy/AdvReac Type Severity Reaction Status Date / Time Sulfa (Sulfonamide AdvReac Severe MARCIA Verified 02/16/22 23:46 Antibiotics) HARTMANN sulfamethoxazole AdvReac Severe MARCIA Verified 02/16/22 23:46 [From Bactrim] HARTMANN trimethoprim [From Bactrim] AdvReac Severe MARCIA Verified 02/16/22 23:46 HARTMANN Home Meds Home Medications Medication Instructions Recorded Confirmed lisinopril 20 mg tablet 20 mg PO QAM 11/14/20 03/07/22 escitalopram oxalate 5 mg tablet 10 mg PO QAM 09/24/21 03/07/22 (Lexapro) aspirin 81 mg tablet,delayed 81 mg PO DAILY 02/16/22 03/07/22 release kzhwmxsr-[id number]-jws C 250 1 tab PO DAILY 02/16/22 03/07/22 mg-herbal no.124 11.66 mg chewable tablet (Airborne Gummy) octreotide acetate 100 mcg/mL 0 mcg IV DAILY 02/16/22 03/07/22 injection solution (Sandostatin) albuterol sulfate 90 mcg/actuation 90 mcg inhalation DAILY 03/07/22 03/07/22 aerosol inhaler fluticasone 250 mcg-salmeterol 50 1 inh inhalation DAILY 03/07/22 03/07/22 mcg/dose blistr powdr for inhalation (Advair Diskus) fluticasone 250 mcg-salmeterol 50 inhalation 03/07/22 mcg/dose blistr powdr for inhalation (Advair Diskus) Results & Data (ED) Vital Signs Vital Signs - 24 hr 03/07/22 17:23 03/07/22 17:38 Temperature 37.2 C Temperature Source Oral Pulse Rate 107 H Pulse Rhythm Regular Pulse Strength Normal Respiratory Rate 22 24 Respiratory Effort / Characteristics Non-Labored Respiratory Depth Normal Respiratory Pattern Regular Blood Pressure 139/81 Blood Pressure Mean 100 Pulse Oximetry 99 Oxygen Delivery Method Room Air Sepsis Recent Fever Within 48 Hours No Sepsis New/Unexplained Change in Mental Status N/A Sepsis Action Taken by Nursing No Action Required Laboratory Data Result diagrams: 03/07/22 18:14 03/07/22 18:14 Lab Results 03/07/22 03/07/22 03/07/22 Range/Units 18:14 18:14 18:14 WBC 11.50 H (4.8-10.8) K/ul RBC 4.83 (4.63-6.08) M/uL Hgb 15.8 (14.0-18.0) g/dl Hct 46.3 (40.1-51.0) % MCV 95.9 (80.0-100.0) fL MCH 32.7 (25.0-34.0) pg MCHC 34.1 (32.0-36.0) g/dL RDW Std Deviation 50.4 H (36.4-46.3) fL RDW Coeff of Christo 14.4 (11.5-14.5) % Plt Count 225 (130-400) K/uL MPV 10.0 (9.4-12.4) fL Immature Gran % (Auto) 0.3 % Neut % (Auto) 80.3 % Lymph % (Auto) 11.4 % [place] % (Auto) 7.4 % Eos % (Auto) 0.3 % Baso % (Auto) 0.3 % Neut # (Auto) 9.23 H (1.4-6.5) K/uL Lymph # (Auto) 1.31 (1.2-3.4) K/uL [place] # (Auto) 0.85 H (0.24-0.82) K/uL Eos # (Auto) 0.04 (0-0.50) K/uL Baso # (Auto) 0.04 (0-0.2) K/uL Immature Gran # (Auto) 0.03 H (0.00-0.02) K/uL Sodium 141 (136-145) mmol/L Potassium 4.1 (3.5-5.1) mmol/L Chloride 106 (98-107) mmol/L Carbon Dioxide 29 (21-32) mmol/L Anion Gap 6 (3-11) BUN 16 (6-23) mg/dl Creatinine 0.97 (0.6-1.4) mg/dl Est Cr Clr Drug Dosing 79.0 ml/min Est GFR ( Amer) 95.2 ml/min Est GFR (Non-Af Amer) 82.2 ml/min BUN/Creatinine Ratio 16.5 (10-20) Glucose 111 H (70-99(Fasting)) mg/dl Calcium 9.6 (8.5-10.1) mg/dl Total Bilirubin 0.5 (0.2-1.0) mg/dl AST 30 (13-39) U/L ALT 29 (7-52) U/L Alkaline Phosphatase 82 (34-104) U/L Total Protein 7.6 (6.0-8.3) gm/dl Albumin 4.7 (3.4-5.0) gm/dl Globulin 2.9 (2.5-4.0) gm/dl Albumin/Globulin Ratio 1.6 (0.9-2) TSH 0.746 (0.300-4.500) uIu/ml Urine Color Urine Appearance (Clear) Urine pH (4.5-7.5) Ur Specific [place] (1.000-1.030) Urine Protein (Negative) Urine Glucose (UA) (Negative) Urine Ketones (Negative) Urine Blood (Negative) Urine Nitrite (Negative) Urine Bilirubin (Negative) Urine Urobilinogen (Negative) Ur Leukocyte Esterase (Negative) Urine WBC (Auto) (0-5) /hpf Urine RBC (Auto) (0-4) /hpf U Hyaline Cast (Auto) (0-5) /lpf U Epithel Cells (Auto) (0-5) /lpf Urine Bacteria (Auto) (Negative) Salicylates (3.0-30) mg/dl Urine Opiates Screen (Neg) Ur Methadone, Qual (Neg) Acetaminophen (10-30) ug/ml Urine Barbiturates (Neg) Ur Phencyclidine (PCP) (Neg) U Amphetamin/Meth Scrn (Neg) MDMA (Ecstasy) Screen (Neg) U Benzodiazepines Scrn (Neg) Ur Cocaine Metabolite (Neg) U Marijuana (THC) Screen (Neg) Ethyl Alcohol mg/dL (<10.0) mg/dl 03/07/22 03/07/22 03/07/22 Range/Units 18:14 18:14 18:30 WBC (4.8-10.8) K/ul RBC (4.63-6.08) M/uL Hgb (14.0-18.0) g/dl Hct (40.1-51.0) % MCV (80.0-100.0) fL MCH (25.0-34.0) pg MCHC (32.0-36.0) g/dL RDW Std Deviation (36.4-46.3) fL RDW Coeff of Christo (11.5-14.5) % Plt Count (130-400) K/uL MPV (9.4-12.4) fL Immature Gran % (Auto) % Neut % (Auto) % Lymph % (Auto) % [place] % (Auto) % Eos % (Auto) % Baso % (Auto) % Neut # (Auto) (1.4-6.5) K/uL Lymph # (Auto) (1.2-3.4) K/uL [place] # (Auto) (0.24-0.82) K/uL Eos # (Auto) (0-0.50) K/uL Baso # (Auto) (0-0.2) K/uL Immature Gran # (Auto) (0.00-0.02) K/uL Sodium (136-145) mmol/L Potassium (3.5-5.1) mmol/L Chloride (98-107) mmol/L Carbon Dioxide (21-32) mmol/L Anion Gap (3-11) BUN (6-23) mg/dl Creatinine (0.6-1.4) mg/dl Est Cr Clr Drug Dosing ml/min Est GFR ( Amer) ml/min Est GFR (Non-Af Amer) ml/min BUN/Creatinine Ratio (10-20) Glucose (70-99(Fasting)) mg/dl Calcium (8.5-10.1) mg/dl Total Bilirubin (0.2-1.0) mg/dl AST (13-39) U/L ALT (7-52) U/L Alkaline Phosphatase (34-104) U/L Total Protein (6.0-8.3) gm/dl Albumin (3.4-5.0) gm/dl Globulin (2.5-4.0) gm/dl Albumin/Globulin Ratio (0.9-2) TSH (0.300-4.500) uIu/ml Urine Color Dark Yellow Urine Appearance Clear (Clear) Urine pH 6.5 (4.5-7.5) Ur Specific [place] 1.025 (1.000-1.030) Urine Protein Trace H (Negative) Urine Glucose (UA) Negative (Negative) Urine Ketones Negative (Negative) Urine Blood 1+ H (Negative) Urine Nitrite Negative (Negative) Urine Bilirubin Negative (Negative) Urine Urobilinogen Negative (Negative) Ur Leukocyte Esterase Negative (Negative) Urine WBC (Auto) 1-5 (0-5) /hpf Urine RBC (Auto) 10-30 H (0-4) /hpf U Hyaline Cast (Auto) 1-5 (0-5) /lpf U Epithel Cells (Auto) 5-10 H (0-5) /lpf Urine Bacteria (Auto) Negative (Negative) Salicylates < 3.0 L (3.0-30) mg/dl Urine Opiates Screen (Neg) Ur Methadone, Qual (Neg) Acetaminophen < 3 L (10-30) ug/ml Urine Barbiturates (Neg) Ur Phencyclidine (PCP) (Neg) U Amphetamin/Meth Scrn (Neg) MDMA (Ecstasy) Screen (Neg) U Benzodiazepines Scrn (Neg) Ur Cocaine Metabolite (Neg) U Marijuana (THC) Screen (Neg) Ethyl Alcohol mg/dL < 10.0 (<10.0) mg/dl 03/07/22 Range/Units 18:30 WBC (4.8-10.8) K/ul RBC (4.63-6.08) M/uL Hgb (14.0-18.0) g/dl Hct (40.1-51.0) % MCV (80.0-100.0) fL MCH (25.0-34.0) pg MCHC (32.0-36.0) g/dL RDW Std Deviation (36.4-46.3) fL RDW Coeff of Christo (11.5-14.5) % Plt Count (130-400) K/uL MPV (9.4-12.4) fL Immature Gran % (Auto) % Neut % (Auto) % Lymph % (Auto) % [place] % (Auto) % Eos % (Auto) % Baso % (Auto) % Neut # (Auto) (1.4-6.5) K/uL Lymph # (Auto) (1.2-3.4) K/uL [place] # (Auto) (0.24-0.82) K/uL Eos # (Auto) (0-0.50) K/uL Baso # (Auto) (0-0.2) K/uL Immature Gran # (Auto) (0.00-0.02) K/uL Sodium (136-145) mmol/L Potassium (3.5-5.1) mmol/L Chloride (98-107) mmol/L Carbon Dioxide (21-32) mmol/L Anion Gap (3-11) BUN (6-23) mg/dl Creatinine (0.6-1.4) mg/dl Est Cr Clr Drug Dosing ml/min Est GFR ( Amer) ml/min Est GFR (Non-Af Amer) ml/min BUN/Creatinine Ratio (10-20) Glucose (70-99(Fasting)) mg/dl Calcium (8.5-10.1) mg/dl Total Bilirubin (0.2-1.0) mg/dl AST (13-39) U/L ALT (7-52) U/L Alkaline Phosphatase (34-104) U/L Total Protein (6.0-8.3) gm/dl Albumin (3.4-5.0) gm/dl Globulin (2.5-4.0) gm/dl Albumin/Globulin Ratio (0.9-2) TSH (0.300-4.500) uIu/ml Urine Color Urine Appearance (Clear) Urine pH (4.5-7.5) Ur Specific [place] (1.000-1.030) Urine Protein (Negative) Urine Glucose (UA) (Negative) Urine Ketones (Negative) Urine Blood (Negative) Urine Nitrite (Negative) Urine Bilirubin (Negative) Urine Urobilinogen (Negative) Ur Leukocyte Esterase (Negative) Urine WBC (Auto) (0-5) /hpf Urine RBC (Auto) (0-4) /hpf U Hyaline Cast (Auto) (0-5) /lpf U Epithel Cells (Auto) (0-5) /lpf Urine Bacteria (Auto) (Negative) Salicylates (3.0-30) mg/dl Urine Opiates Screen Neg (Neg) Ur Methadone, Qual Neg (Neg) Acetaminophen (10-30) ug/ml Urine Barbiturates Neg (Neg) Ur Phencyclidine (PCP) Neg (Neg) U Amphetamin/Meth Scrn Neg (Neg) MDMA (Ecstasy) Screen Neg (Neg) U Benzodiazepines Scrn Neg (Neg) Ur Cocaine Metabolite Neg (Neg) U Marijuana (THC) Screen Pos H (Neg) Ethyl Alcohol mg/dL (<10.0) mg/dl Administered Medications Discontinued Medications Ondansetron HCl (Ondansetron 4 Mg Od Tab) 4 mg PO NOW STA Stop: 03/07/22 20:43 Last Admin: 03/07/22 20:57 Dose: 4 mg Documented By: [facility] Imaging Data Radiologist's Impression: Head CT 03/07/22 18:[address] DOSE: 691.05 mGy.cm HISTORY: confusion TECHNIQUE: Multiaxial CT images of the head were performed without the use of intravenous contrast. Automated exposure control was utilized for this study. A dose lowering technique was utilized adhering to the principles of ALARA. Comparison: Head CT 02/05/2010. Findings: The paranasal sinuses and mastoid air cells are clear. The calvarium and skull base are intact. The ventricles and sulci are within normal limits. There is no mass, hematoma, midline shift, or acute infarct. Mild left frontal periventricular white matter hypodensity is nonspecific but favors minimal microvascular ischemic change given the patient's age. Impression: No acute infarct or intracranial hemorrhage. ACT 112: Negative or not required by law. Electronically signed by: Jung Larsen M.D. 03/07/2022 6:53 PM Chest X-Ray 03/07/22 20:09 XR chest 1V portable HISTORY: Confusion. COMPARISON: Chest 02/16/2022. FINDINGS: No pneumothorax. No pleural effusions. The lungs are mildly hyperexpanded. No focal lung consolidations to suggest a pneumonia. No evidence for pulmonary edema. The heart is normal in size. IMPRESSION: Mildly hyperexpanded lungs. Otherwise, no acute process within the chest. ACT 112: Negative or not required by law. Electronically signed by: Jung Larsen M.D. 03/07/2022 8:53 PM Discharge Plan Visit Data Chief Complaint: Mental Health Evaluation Stated Complaint: MHID, PREV. NOSE BLEED ED Provider: Fany Barth Discharge Problem: Acute psychosis, Suicidal ideation Patient Disposition: Still a Patient Forms Stand Alone Forms: [facility], Suicide Prevention Resources Prescriptions Prescriptions: No Action escitalopram oxalate [Lexapro] 5 mg tablet 10 mg PO QAM lisinopril 20 mg Tablet 20 mg PO QAM octreotide acetate [Sandostatin] 100 mcg/mL Solution 0 mcg IV DAILY Rx Instructions: PT UNSURE OF DOSE, NURSE DID FIRST INJECTION ABOUT 2 WKS AGO. aspirin 81 mg Tablet,Delayed Release (Dr/Ec) 81 mg PO DAILY Airborne Gummy 250-11.66 mg Tablet,Chewable 1 tab PO DAILY fluticasone propion-salmeterol [Advair Diskus] 250-50 mcg/dose blister with device INHALATION fluticasone propion-salmeterol [Advair Diskus] 250-50 mcg/dose blister with device 1 inh INHALATION DAILY albuterol sulfate 90 mcg/actuation HFA aerosol inhaler 90 mcg INHALATION DAILY Referrals Referrals: Pino Boudreaux MD [Primary Care Provider] -
[2022-03-07 18:29] LABS: Basophils # (auto) 0.04 K/uL (0-0.2); Basophils % (auto) 0.3 %; Eosinophils # (auto) 0.04 K/uL (0-0.50); Eosinophils % (auto) 0.3 %; Hematocrit (blood only) 46.3 % (40.1-51.0); Hemoglobin 15.8 g/dl (14.0-18.0); Immature Granulocytes # (auto) 0.03 K/uL (0.00-0.02); Immature Granulocytes % (auto) 0.3 %; Lymphocytes # (auto) 1.31 K/uL (1.2-3.4); Lymphocytes % (auto) 11.4 %; Mean Corpuscular Hemoglobin 32.7 pg (25.0-34.0); Mean Corpuscular Hgb Conc 34.1 g/dL (32.0-36.0); Mean Corpuscular Volume 95.9 fL (80.0-100.0); Monocytes # (auto) 0.85 K/uL (0.24-0.82); Monocytes % (auto) 7.4 %; Neutrophils # (auto) 9.23 K/uL (1.4-6.5); Neutrophils % (auto) 80.3 %; Platelet Count 225 K/uL (130-400); RDW Coefficient of Variation 14.4 % (11.5-14.5); RDW Standard Deviation 50.4 fL (36.4-46.3); Red Blood Count 4.83 M/uL (4.63-6.08)
[2022-03-07 18:52] LABS: Acetaminophen < 3 ug/ml (10-30); Albumin Globulin Ratio 1.6 (0.9-2); Albumin Level 4.7 gm/dl (3.4-5.0); BUN Creatinine Ratio 16.5 (10-20); Bilirubin,Total 0.5 mg/dl (0.2-1.0); Calcium 9.6 mg/dl (8.5-10.1); Est GFR (African American) 95.2 ml/min; Est GFR (Non-African American) 82.2 ml/min; Globulin 2.9 gm/dl (2.5-4.0); Potassium 4.1 mmol/L (3.5-5.1); Salicylate < 3.0 mg/dl (3.0-30); Total Protein 7.6 gm/dl (6.0-8.3)
--- NOTE | 2022-03-07 18:55 | CT Scan Report ---
HEAD CT NONCONTRAST CT DOSE: 691.05 mGy.cm HISTORY: confusion TECHNIQUE: Multiaxial CT images of the head were performed without the use of intravenous contrast. A utomated exposure control was utilized for this study. A dose lowering technique was utilized adheri ng to the principles of ALARA. Comparison: Head CT 02/05/2010. Findings: The paranasal sinuses and mastoid air cells are clear. The calvarium and skull base are int act. The ventricles and sulci are within normal limits. There is no mass, hematoma, midline shift, or acute infarct. Mild left frontal periventricular white matter hypodensity is nonspecific but favors minimal microvascular ischemic change given the patient's age. Impression: No acute infarct or intracranial hemorrhage. ACT 112: Negative or not required by law. Electronically signed by: Jung Larsen M.D. 03/07/2022 6:53 PM
[2022-03-07 19:05] LABS: Appearance Urine Clear (Clear); Bacteria Urine Automated Negative (Negative); Bilirubin Urine Negative (Negative); Blood Urine 1+ (Negative); Color Urine Dark Yellow; Glucose Urine UA Negative (Negative); Ketones Urine Negative (Negative); Leukocyte Esterase Urine Negative (Negative); Nitrite Urine Negative (Negative); Protein Urine Trace (Negative); Specific Gravity Urine 1.025 (1.000-1.030); Urobilinogen Urine Negative (Negative); pH Urine 6.5 (4.5-7.5)
[2022-03-07 19:21] LABS: Amphetamines+Metham, Urine Neg (Neg); Barbiturates, Urine Neg (Neg); Benzodiazepine, Urine Neg (Neg); Cocaine, Urine Neg (Neg); MDMA (Ecstacy), Urine Neg (Neg); Methadone, Urine Neg (Neg); Opiate, Urine Neg (Neg); Phencyclidine, Urine Neg (Neg)
[2022-03-07] MEDS ORDERED: ALBUTEROL HFA 8 GM INHALER INH ONE (19:55)
[2022-03-07] MEDS ORDERED: BENZONATATE 100 MG CAPSULE PO ONE (19:55)
[2022-03-07] MEDS ORDERED: ONDANSETRON 4 MG OD TAB PO STA (20:42)
--- NOTE | 2022-03-07 20:54 | XRay Report ---
XR chest 1V portable HISTORY: Confusion. COMPARISON: Chest 02/16/2022. FINDINGS: No pneumothorax. No pleural effusions. The lungs are mildly hyperexpanded. No focal lung co nsolidations to suggest a pneumonia. No evidence for pulmonary edema. The heart is normal in size. IMPRESSION: Mildly hyperexpanded lungs. Otherwise, no acute process within the chest. ACT 112: Negative or not required by law. Electronically signed by: Jung Larsen M.D. 03/07/2022 8:53 PM
[2022-03-07] MEDS ORDERED: ASPIRIN 81 MG ECTAB PO STA (22:46)
[2022-03-07] MEDS ORDERED: NICOTINE 14 MG/24 HR PATCH TD STA (23:41)
--- NOTE | 2022-03-08 01:42 | Emergency Department Note ---
ED Visit Note This case was signed out to me at change of shift. The patient requested to speak with me as he wanted to review the care he had received by the previous physician. I began to listen to the patient but the patient started to question me about my personal life. I ended the conversation. The patient stated that he came here wanting to know if Sandostatin caused nosebleeds so nursing staff will contact the pharmacy to find out if this is a side effect of the medication. The bed search has been suspended overnight and will resume in the morning. Patient requested his albuterol inhaler be ordered for use. The case will be signed out to Dr. Zaragoza at change of shift. .
[2022-03-08] MEDS ORDERED: ALBUTEROL HFA 8 GM INHALER INH ONE (07:09)
[2022-03-08] MEDS ORDERED: ASPIRIN 81 MG ECTAB PO SCH (09:00)
[2022-03-08] MEDS ORDERED: lisinopril 20 MG TAB PO SCH ×2 (09:00)
[2022-03-08] MEDS ORDERED: FLUTICASONE/SALMETEROL 250/50 (ADVAIR) 14 PUFF/1 INHALER INH SCH (09:00)
[2022-03-08] MEDS ORDERED: FLUTICASONE/VILANTEROL 100/25MCG 14 PUFFS/INHALER INH SCH (09:30)
--- NOTE | 2022-03-08 11:32 | Communication Note ---
Date of Service: March 08, 2022 Met with patient for psychiatric consult. He will be admitted to [facility] later this afternoon.
[2022-03-08] MEDS ORDERED: MAGNESIUM HYDROXIDE SUSP 30 ML UDC PO PRN (11:54)
[2022-03-08] MEDS ORDERED: hydrOXYzine HCl 25 MG TAB PO PRN ×2 (11:54)
[2022-03-08] MEDS ORDERED: BISMUTH SUBSALICYLATE LIQD 236 ML PO PRN (11:54)
[2022-03-08] MEDS ORDERED: SODIUM CHLORIDE 0.65% NA SOLN 45 ML (OCEAN) PRN (11:54)
[2022-03-08] MEDS ORDERED: ALUMINUM/MAGNESIUM SUSP 30 ML UDC PO PRN (11:54)
[2022-03-08] MEDS ORDERED: NICOTINE 21 MG/24 HR TDSY TD ONE (12:48)
[2022-03-08] MEDS ORDERED: NICOTINE POLACRILEX 2 MG GUM MT PRN (13:17)
[2022-03-08] MEDS ORDERED: QUEtiapine FUMARATE 25 MG TABLET PO PRN (14:22)
--- NOTE | 2022-03-08 14:41 | History & Physical ---
Date of Service March 08, 2022 Impression / Recommendations Impression 66 yo man with no notable psychiatric history with exception of depression and anxiety well managed on low dose escitalopram for many years now with stage III carcinoid cancer and recently started on octreotide about two months ago with increased agitation, irritability, personality changes and paranoid ideation admitted on a 302 commitment. 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 There remains possibility for further advancement of his cancer leading to personality changes, but no evidence for further metastasis to brain on head CT and no other neurological symptoms so will defer necessity for further brain imaging such as MRI to his oncology team. Reviewed literature notable for some case reports of octreotide-induced agitation and paranoid ideation as well speculation that carcinoid cancer may cause elevated levels of serotonin that can lead to personality changes/irritability/psychosis. In one of the case reports an individual of similar age responded very favorable to low dose seroquel 100mg titrated slowly over a few days with significant improvement. At this time given level of agitation prior to admission, access to a gun at home and personality change he is deemed unstable and requires psychiatric hospitalization for diagnostic clarification, safety and stabilization, medication management and development of further coping skills. Discussed medication treatment options in detail. Discussed risks, benefits and alternatives. Patient would like to start and consented to Seroquel trial for suspected octreotide versus carcinoid cancer induced psychosis based on evidence from a case study showing potential benefit. Reviewed side effects including but not limited to: movement (TD, NMS), cardiac (QTc prolongation), and metabolic (stroke, insulin resistance) and necessity for routine fasting lipid and glucose labwork if on the medication longer-term and AIMS done with score of 0. MNPR due to age with cancer and increased risk of infection as well as irritability/mood lability (1) Drug-induced psychotic disorder: (2) Paranoia: (3) Carcinoid tumor: (4) COPD (chronic obstructive pulmonary disease): (5) High blood pressure: Plan 03/08/2022: The patient was admitted to the [facility]) on q15 min checks (behavioral with suicide precautions) for safety. The patient will participate in group, recreational, and milieu therapies and will be offered additional individual and family sessions as clinically appropriate. -Continue escitalopram 10mg qd for now, may hold if symptoms do not respond well to seroquel -Hold mirtazapine as seroquel will help with sleep and appetite -Start seroquel 25mg qhs with additional 12.5mg TID prn for anxiety/agitation -Hold off on fasting lipid panel for now given plan for low dose and potentially time limited use -message left at [facility] for his oncologist Dr. Hernández for coordination of care Inventory Assets Strengths: supportive , employed, motivated to feel better, strong rapport with his cancer providers and PCP Needs: diagnostic clarification, medication management, safety planning, additional coping skills Suicide Risk Level Suicide Risk Level: Low (q15 min observation checks) (consistently denying SI, agrees to alert nursing if he developed SI or feels unsafe) Risk Factors Assessment Male: Yes : Yes Do You Have Access To A Gun?: Yes (does have one gun at home, willing to have his remove this) Health Problems: Yes Mental Health Diagnoses: Yes Substance Use Disorders: No (in past) Previous Attempt: No Family History of Suicide: No Previous Psychiatric Hospitalization: No (dual diagnosis ) Hopelessness: No Protective Factors Assessment : Yes 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 Chief Complaint "I wouldn't wish this drug on my worst enemy". History of Present Illness Susana presents with worsening irritability, agitation and paranoid ideation over the last few weeks but particularly worsening over the last week in the c ontext of stage 3 carcinoid cancer and recently started on octreotide about two months ago. He recently moved into an apartment locally but remains . He was brought to the hospital via police on a 302 warrant which was completed in the ED due to concern for risk to himself and others. The 302 petitioning statements note increased apathy toward customers, more easily agitated and at times hostile toward others and not in his normal frame of mind. The 302 petition also described his concerns that a customer at [employer] was stalking him or might kill him for which police said video footage they reviewed did not support. Susana describes working at [employer] and that he may have been more irritable with a rude customer who then alerted her who followed him when he went outside to take a smoke break and told him not to speak to his that way. Susana states he apologized but had a sense, physically, that this man meant him harm and so he asked his co-worker to alert management and requested police be called. When they arrived he acknowledges he likely was irritable and "I reacted the way I did and it was wrong" but he is adamant that he would never hurt himself or anyone else. He notes that since starting the octreotide he's experienced side effects but that over the last few weeks they have gotten worse and he notes "this is not my normal personality but I'm just really irritable" and becomes tearful noting frustration that the medication is needed to help his cancer but that he feels he cannot take it anymore as "I wouldn't wish this drug on my worst enemy". He is currently prescribed psychiatric medications of escitalopram, which he's taken for about 5-10 years, for depression and anxiety and his PCP recently added mirtazapine 15mg qhs to help with cancer associated loss of appetite. Psychiatric ROS notable for no prior history of yue nor psychosis. Past Psychiatric History Current Psychiatric Diagnosis: Depression Outpatient Services: none Previous Psych Admissions: none for primary inpatient psychiatry; does have three prior admissions for dual diagnosis/substance use treatment, last admission was about 5 years ago at [facility], also previously at [place] and [place] Do You Have Access To A Gun?: Yes (does have one gun at home, willing to have his remove this) History of Previous Suicide Attempt: No Past Head Trauma/Neuro History History of Concussion/Seizure: No Allergies Allergy/AdvReac Type Severity Reaction Status Date / Time Sulfa (Sulfonamide AdvReac Severe MARCIA Verified 02/16/22 23:46 Antibiotics) HARTMANN sulfamethoxazole AdvReac Severe MARCIA Verified 02/16/22 23:46 [From Bactrim] HARTMANN trimethoprim [From Bactrim] AdvReac Severe MARCIA Verified 02/16/22 23:46 HARTMANN Home Medications Medication Instructions Recorded Confirmed Type lisinopril 20 mg tablet 20 mg PO QAM 11/14/20 03/07/22 History escitalopram oxalate 5 mg tablet 10 mg PO QAM 09/24/21 03/07/22 History (Lexapro) aspirin 81 mg tablet,delayed 81 mg PO DAILY 02/16/22 03/07/22 History release [id number]-[id number]-oib C 250 1 tab PO DAILY 02/16/22 03/07/22 History mg-herbal no.124 11.66 mg chewable tablet (Airborne Gummy) octreotide acetate 100 mcg/mL 0 mcg IV DAILY 02/16/22 03/07/22 History injection solution (Sandostatin) albuterol sulfate 90 mcg/actuation 90 mcg inhalation DAILY 03/07/22 03/07/22 History aerosol inhaler fluticasone 250 mcg-salmeterol 50 1 inh inhalation DAILY 03/07/22 03/07/22 History mcg/dose blistr powdr for inhalation (Advair Diskus) mirtazapine 15 mg tablet 15 mg PO HS 03/08/22 03/08/22 History Family History Family History of: None Alcohol History Hx of Alcohol Use Over the Past 12 Months: Yes (occassional - "recovered alcoholic") Has been sober for the last 5 years but states since his cancer diagnosis has had a drink now and then Smoking Use tobacco type: cigarettes Smoking Status: Current every day smoker Substance History Hx of Prescription Med Misuse Over the Past 12 Months: No Hx of Over the Counter Med Misuse Over the Past 12 Months: No Hx of Inhalent Misuse Over the Past 12 Months: No Hx of Organic Substance Use Over the Past 12 Months: No Hx of Illegal Substances/Street Drug Use Over Past 12 Months: No Problems as a Result of Past Substance Use: None Identified cannabis use for cancer related symptoms Personal History Living Arrangements: Apartment Highest Grade Completed: College 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) Marital Status: Beliefs That Will Affect Care: None Current Legal Problems: No Hx Legal Problems: Yes (hx DUIs in past for alcohol use) Patient History Medical History Cancer Carcinoid with a primary lesion is in the terminal ileum with intra-abdominal metastasis Chronic obstructive pulmonary disease High blood pressure History of anxiety History of chronic cough Ludwigs angina Hx > resolved Prostate cancer s/p prostatectomy (~2010) No chemo and XRT Smoker Surgical History History of bowel resection (10/10/21) Laparoscopic Assisted Small Bowel Resection with Primary Anastomsis and Biopsy Left External Iliac Node(Not Applicable) - Noé Dumont MD, FACS History of prostate surgery Prostatectomy Hx of colonoscopy S/P right inguinal hernia repair Open Right Inguinal hernia repair (12/04/20): Grade view 2, MAC#4, ETT 7.5 at [facility]. No issues noted per post-op anesthesia progress note. 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 Feels Safe at Home: Yes Gender Identity: Male Assistive Devices: Glasses Review of Systems Review of Systems: All systems reviewed & are unremarkable except as noted in HPI & below (recently had two bloody noses but none today) Physical Exam Psychiatric: Orientation: alert and oriented x 3 Apperance: appropriately dressed and appropriately groomed Eye Contact: good eye contact Motor Behavior: + psychomotor agitation Speech: + loud speech; + abnormal rate/rhythm/volume of speech (rapid, hyperverbal but able to be interrupted) Affect: + anxious affect, + tearful affect, + labile affect and + irritable affect Mood: + anxious mood and + irritable mood Thought Process: clear/coherent thought process and + circumstantial thought process Thought Content: + paranoid Suicidal Thoughts: denies suicidal thoughts Homicidal Thoughts: denies homicidal thoughts Hallucinations: no auditory hallucinations and no visual hallucinations Cognition: recent memory grossly intact, remote memory grossly intact, attention grossly intact and language grossly intact Estimated Intelligence: consistent with education level Insight: + fair insight Judgement: + limited judgement Vital Signs (Past 24 Hours): Last Vital Signs Temp 36.8 C 03/07/22 23:00 Pulse 60 03/08/22 13:57 Resp 16 03/08/22 13:57 BP 120/86 03/08/22 13:57 Pulse Ox 95 12/31/22 13:57 O2 Del Method 03/08/22 13:57 Exam Statement: A physical exam was performed in the ED by Dr. Barth for the purposes of medical clearance. I accept that physical as correct and adequate for the purposes of the inpatient physical exam. Results & Data ([facility]) Laboratory Results Laboratory Results - last 24 hr 03/07/22 03/07/22 03/07/22 18:13 18:14 18:14 WBC 11.50 H RBC 4.83 Hgb 15.8 Hct 46.3 MCV 95.9 MCH 32.7 MCHC 34.1 RDW Std Deviation 50.4 H RDW Coeff of Christo 14.4 Plt Count 225 MPV 10.0 Immature Gran % (Auto) 0.3 Neut % (Auto) 80.3 Lymph % (Auto) 11.4 Mcminn % (Auto) 7.4 Eos % (Auto) 0.3 Baso % (Auto) 0.3 Neut # (Auto) 9.23 H Lymph # (Auto) 1.31 Mcminn # (Auto) 0.85 H Eos # (Auto) 0.04 Baso # (Auto) 0.04 Immature Gran # (Auto) 0.03 H Sodium 141 Potassium 4.1 Chloride 106 Carbon Dioxide 29 Anion Gap 6 BUN 16 Creatinine 0.97 Est Cr Clr Drug Dosing 79.0 Est GFR ( Amer) 95.2 Est GFR (Non-Af Amer) 82.2 BUN/Creatinine Ratio 16.5 Glucose 111 H Calcium 9.6 Total Bilirubin 0.5 AST 30 ALT 29 Alkaline Phosphatase 82 Total Protein 7.6 Albumin 4.7 Globulin 2.9 Albumin/Globulin Ratio 1.6 TSH Urine Color Urine Appearance Urine pH Ur Specific [place] Urine Protein Urine Glucose (UA) Urine Ketones Urine Blood Urine Nitrite Urine Bilirubin Urine Urobilinogen Ur Leukocyte Esterase Urine WBC (Auto) Urine RBC (Auto) U Hyaline Cast (Auto) U Epithel Cells (Auto) Urine Bacteria (Auto) Salicylates Urine Opiates Screen Ur Methadone, Qual Acetaminophen Urine Barbiturates Ur Phencyclidine (PCP) U Amphetamin/Meth Scrn MDMA (Ecstasy) Screen U Benzodiazepines Scrn Ur Cocaine Metabolite U Marijuana (THC) Screen U Marijuana THC Carboxy Drug Screen Comment Ethyl Alcohol mg/dL SARS-CoV-2, RNA, NAAT NEGATIVE 03/07/22 03/07/22 03/07/22 18:14 18:14 18:14 WBC RBC Hgb Hct MCV MCH MCHC RDW Std Deviation RDW Coeff of Christo Plt Count MPV Immature Gran % (Auto) Neut % (Auto) Lymph % (Auto) Mcminn % (Auto) Eos % (Auto) Baso % (Auto) Neut # (Auto) Lymph # (Auto) Mcminn # (Auto) Eos # (Auto) Baso # (Auto) Immature Gran # (Auto) Sodium Potassium Chloride Carbon Dioxide Anion Gap BUN Creatinine Est Cr Clr Drug Dosing Est GFR ( Amer) Est GFR (Non-Af Amer) BUN/Creatinine Ratio Glucose Calcium Total Bilirubin AST ALT Alkaline Phosphatase Total Protein Albumin Globulin Albumin/Globulin Ratio TSH 0.746 Urine Color Urine Appearance Urine pH Ur Specific [place] Urine Protein Urine Glucose (UA) Urine Ketones Urine Blood Urine Nitrite Urine Bilirubin Urine Urobilinogen Ur Leukocyte Esterase Urine WBC (Auto) Urine RBC (Auto) U Hyaline Cast (Auto) U Epithel Cells (Auto) Urine Bacteria (Auto) Salicylates < 3.0 L Urine Opiates Screen Ur Methadone, Qual Acetaminophen < 3 L Urine Barbiturates Ur Phencyclidine (PCP) U Amphetamin/Meth Scrn MDMA (Ecstasy) Screen U Benzodiazepines Scrn Ur Cocaine Metabolite U Marijuana (THC) Screen U Marijuana THC Carboxy Drug Screen Comment Ethyl Alcohol mg/dL < 10.0 SARS-CoV-2, RNA, NAAT 03/07/22 03/07/22 03/07/22 18:30 18:30 18:30 WBC RBC Hgb Hct MCV MCH MCHC RDW Std Deviation RDW Coeff of Christo Plt Count MPV Immature Gran % (Auto) Neut % (Auto) Lymph % (Auto) Mcminn % (Auto) Eos % (Auto) Baso % (Auto) Neut # (Auto) Lymph # (Auto) Mcminn # (Auto) Eos # (Auto) Baso # (Auto) Immature Gran # (Auto) Sodium Potassium Chloride Carbon Dioxide Anion Gap BUN Creatinine Est Cr Clr Drug Dosing Est GFR ( Amer) Est GFR (Non-Af Amer) BUN/Creatinine Ratio Glucose Calcium Total Bilirubin AST ALT Alkaline Phosphatase Total Protein Albumin Globulin Albumin/Globulin Ratio TSH Urine Color Dark Yellow Urine Appearance Clear Urine pH 6.5 Ur Specific [place] 1.025 Urine Protein Trace H Urine Glucose (UA) Negative Urine Ketones Negative Urine Blood 1+ H Urine Nitrite Negative Urine Bilirubin Negative Urine Urobilinogen Negative Ur Leukocyte Esterase Negative Urine WBC (Auto) 1-5 Urine RBC (Auto) 10-30 H U Hyaline Cast (Auto) 1-5 U Epithel Cells (Auto) 5-10 H Urine Bacteria (Auto) Negative Salicylates Urine Opiates Screen Neg Ur Methadone, Qual Neg Acetaminophen Urine Barbiturates Neg Ur Phencyclidine (PCP) Neg U Amphetamin/Meth Scrn Neg MDMA (Ecstasy) Screen Neg U Benzodiazepines Scrn Neg Ur Cocaine Metabolite Neg U Marijuana (THC) Screen Pos H U Marijuana THC Carboxy Pending Drug Screen Comment Pending Ethyl Alcohol mg/dL SARS-CoV-2, RNA, NAAT Diagnostic Findings Head CT non-contrast done in the ED with radiologist read "Findings: The paranasal sinuses and mastoid air cells are clear. The calvarium and skull base are intact. The ventricles and sulci are within normal limits. There is no mass, hematoma, midline shift, or acute infarct. Mild left frontal periventricular white matter hypodensity is nonspecific but favors minimal microvascular ischemic change given the patient's age. Impression: No acute infarct or intracranial hemorrhage." Current Inpatient Medications Current Inpatient Medications: Current Inpatient Medications Acetaminophen (Acetaminophen 325 Mg Tab) 650 mg PO Q4H PRN PRN Reason: Headache or Minor Fever Stop: 04/07/22 11:53 Al Hydrox/Mg Hydrox/Simethicone (Aluminum/Magnesium Susp 30 Ml Udc) 30 ml PO Q4H PRN PRN Reason: GI Upset Stop: 04/07/22 11:53 Aspirin (Aspirin 81 Mg Ectab) 81 mg PO DAILY JIM Stop: 04/07/22 08:59 Last Admin: 03/08/22 10:42 Dose: 81 mg Bismuth Subsalicylate (Bismuth Subsalicylate Liqd 236 Ml) 15 ml PO PRN PRN PRN Reason: Loose Stool Stop: 04/07/22 11:53 Fluticasone/Vilanterol (Fluticasone/Vilanterol 100/25mcg 14 Puffs/Inhaler) 1 puffs INH DAILY JIM Stop: 04/07/22 09:29 Last Admin: 03/08/22 12:05 Dose: 1 puffs Hydroxyzine HCl (Hydroxyzine Hcl 25 Mg Tab) 50 mg PO HSZ PRN PRN Reason: Insomnia Stop: 04/07/22 11:53 Hydroxyzine HCl (Hydroxyzine Hcl 25 Mg Tab) 25 mg PO Q4H PRN PRN Reason: Anxiety Stop: 04/07/22 11:53 Lisinopril (Lisinopril 20 Mg Tab) [facility] [place] [facility] Stop: 04/07/22 08:59 Last Admin: 03/08/22 10:23 Dose: Not Given Lisinopril (Lisinopril 20 Mg Tab) [facility] [place] Stop: 04/07/22 08:59 Last Admin: 03/08/22 10:42 Dose: 20 mg Magnesium Hydroxide (Magnesium Hydroxide Susp 30 Ml Udc) 30 ml PO DAILY PRN PRN Reason: Constipation Stop: 04/07/22 11:53 Miscellaneous (Remove Nicoderm Patch) 1 each N/A DAILY@0859 [facility] Stop: 04/07/22 08:58 Last Admin: 03/08/22 12:33 Dose: 1 each Miscellaneous (Remove Nicoderm Patch) 1 each N/A DAILY@0859 [facility] Stop: 04/08/22 08:58 Miscellaneous (Remove Nicoderm Patch) 1 each N/A DAILY@0859 [facility] Stop: 04/08/22 08:58 Nicotine (Nicotine 14 Mg/24 Hr Patch) 14 mg TD QAM [facility] Stop: 04/08/22 08:59 Nicotine (Nicotine 21 Mg/24 Hr Tdsy) 21 mg TD QAM [facility] Stop: 04/08/22 08:59 Nicotine Polacrilex (Nicotine Polacrilex 2 Mg Gum) 1 piece MT PRN PRN PRN Reason: patient request Stop: 04/07/22 13:16 Non-Formulary Medication (Escitalopram Oxalate [Lexapro]) 10 mg PO [facility] Stop: 04/07/22 08:59 Last Admin: 03/08/22 11:23 Dose: Not Given Quetiapine Fumarate (Quetiapine Fumarate 25 Mg Tablet) 12.5 mg PO TID PRN PRN Reason: Anxiety/Agitation Stop: 04/07/22 20:59 Quetiapine Fumarate (Quetiapine Fumarate 25 Mg Tablet) 25 mg PO HS [facility] Stop: 04/07/22 21:59 Sodium Chloride (Sodium Chloride 0.65% Na Soln 45 Ml ([place])) 1 - 2 sprays NA PRN PRN PRN Reason: Nasal Dryness/Congestion Stop: 04/07/22 11:53
--- NOTE | 2022-03-08 14:47 | Emergency Department Note ---
ED Visit Note The patient was signed out to me awaiting placement. He was placed through to accepted to [facility] [address]. .
--- NOTE | 2022-03-08 14:47 | Electrocardiogram Report ---
Test Reason : Blood Pressure : / mmHG Vent. Rate : 075 BPM Atrial Rate : 075 BPM P-R Int : 194 ms QRS Dur : 100 ms QT Int : 390 ms P-R-T Axes : 071 090 042 degrees QTc Int : 435 ms Poor data quality, interpretation may be adversely affected Sinus rhythm with marked sinus arrhythmia Incomplete right bundle branch block Right ventricular hypertrophy with repolarization abnormality Abnormal ECG When compared with ECG of 16-FEB-2022 23:23, Premature atrial complexes are no longer Present QT has shortened Confirmed by Smam Turner ([id number]) on 03/08/2022 2:47:12 PM Referred By: REFERRED SELF Confirmed By:Samm Turner
[2022-03-08] MEDS ORDERED: QUEtiapine FUMARATE 25 MG TABLET PO SCH (22:00)
[2022-03-08] MEDS: FLUTICASONE/VILANTEROL 200/25MCG 14 PUFFS/INHALER INH SCH (22:21)
[2022-03-09] MEDS: ASPIRIN 81 MG ECTAB PO SCH (08:05)
[2022-03-09] MEDS: ALBUTEROL HFA 8 GM INHALER INH SCH (08:05)
[2022-03-09] MEDS: ESCITALOPRAM OXALATE 10 MG TAB PO SCH (08:05)
[2022-03-09] MEDS: lisinopril 20 MG TAB PO SCH (08:06)
[2022-03-09] MEDS: NICOTINE 14 MG/24 HR PATCH TD SCH (08:06)
[2022-03-09] MEDS ORDERED: NICOTINE 21 MG/24 HR TDSY TD SCH (09:00)
[2022-03-09] MEDS ORDERED: FLUTICASONE/VILANTEROL 200/25MCG 14 PUFFS/INHALER INH SCH (09:00)
[2022-03-09] MEDS ORDERED: IBUPROFEN 200 MG TAB PO PRN (09:16)
[2022-03-09] MEDS: ACETAMINOPHEN 325 MG TAB PO PRN (09:20)
--- NOTE | 2022-03-09 12:01 | Psychiatric Progress Note ---
Date of Service March 09, 2022 Impression / Recommendations Impression 66 yo man with no notable psychiatric history with exception of depression and anxiety well managed on low dose escitalopram for many years now with stage III carcinoid cancer and recently started on octreotide about two months ago with increased agitation, irritability, personality changes and paranoid ideation admitted on a 302 commitment. 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 There remains possibility for further advancement of his cancer leading to personality changes, but no evidence for further metastasis to brain on head CT and no other neurological symptoms so will defer necessity for further brain imaging such as MRI to his oncology team. Reviewed literature notable for some case reports of octreotide-induced agitation and paranoid ideation as well speculation that carcinoid cancer may cause elevated levels of serotonin that can lead to personality changes/irritability/psychosis. Could also be component from cannabis use which he started to help with the octreotide associated anorexia. In one of the case reports an individual of similar age responded very favorable to low dose seroquel 100mg titrated slowly over a few days with significant improvement. At this time given level of agitation prior to admission, access to a gun at home and personality change he is deemed unstable and requires psychiatric hospitalization for diagnostic clarification, safety and stabilization, medication management and development of further coping skills. Discussed medication treatment options in detail. Discussed risks, benefits and alternatives. Patient would like to start and consented to Seroquel trial for suspected octreotide versus carcinoid cancer induced psychosis based on evidence from a case study showing potential benefit. Reviewed side effects including but not limited to: movement (TD, NMS), cardiac (QTc prolongation), and metabolic (stroke, insulin resistance) and necessity for routine fasting lipid and glucose labwork if on the medication longer-term and AIMS done with score of 0. MNPR due to age with cancer and increased risk of infection as well as irritability/mood lability 03/09/2022: Still with periods of paranoia and agitation last evening but tolerated Seroquel well. Today no evidence of paranoia but still with mood lability. Will continue Seroquel titration. Is agreeable and wants to take time off from work as he feels he won't be able to think as clearly due to Seroquel side effects so discussed option to discuss FMLA or short term disability with social work. (1) Drug-induced psychotic disorder: (2) Paranoia: (3) Carcinoid tumor: (4) COPD (chronic obstructive pulmonary disease): (5) High blood pressure: Plan 03/09/2022: Increase seroquel to 50mg qhs 03/08/2022: [facility] on q15 min checks (behavioral with suicide precautions) for safety. The patient will participate in group, recreational, and milieu therapies and will be offered additional individual and family sessions as clinically appropriate. -Continue escitalopram 10mg qd for now, may hold if symptoms do not respond well to seroquel -Hold mirtazapine as seroquel will help with sleep and appetite -Start seroquel 25mg qhs with additional 12.5mg TID prn for anxiety/agitation -Hold off on fasting lipid panel for now given plan for low dose and potentially time limited use -message left at [place] for his oncologist Dr. Hernández for coordination of care Inventory Assets Strengths: supportive , employed, motivated to feel better, strong rapport with his cancer providers and PCP Needs: diagnostic clarification, medication management, safety planning, additional coping skills Suicide Risk Level Suicide Risk Level: Low (q15 min observation checks) (consistently denying SI, agrees to alert nursing if he developed SI or feels unsafe) Risk Factors Assessment Male: Yes : Yes Do You Have Access To A Gun?: Yes (does have one gun at home, willing to have his remove this) Health Problems: Yes Mental Health Diagnoses: Yes Substance Use Disorders: No (in past) Previous Attempt: No Family History of Suicide: No Previous Psychiatric Hospitalization: No (dual diagnosis ) Hopelessness: No Protective Factors Assessment : Yes 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 Chief Complaint "I'm feeling a bit more like myself but we're not all the way there yet". Review of Systems Sleep Information Total Hours of Sleep: 6.5 Meal Information Percent Meal Consumed - Dinner: 100 Subjective Subjective Patient was seen & assessed and interval progress reviewed with treatment team nursing and social work. Concerned about locks on his home and more irritable yesterday evening but accepted prn Seroquel. Got a nose bleed overnight. Slept well with the seroquel. Denies any side effects, except some mental "cloudiness" but no excessive sedation this morning. Notes he's experiencing the feeling of hunger again which is really nice for him and he's liking the food here. Still with mood lability but lessening of irritability. He wonders about additional potential impact of cannabis on his mood as he started using this to help increase appetite after starting octreotide. He asked his to remove the gun from his home, which is in a secure biometric lock box, and she is going to bring it to her brother's home as [place] and has many guns so knows how to keep firearms securely. Expresses gratitude for the care he's receiving, is grateful he's starting to feel less irritable. Physical Exam Psychiatric Orientation: alert and oriented x 3 Apperance: appropriately dressed and appropriately groomed Eye Contact: good eye contact Motor Behavior: + psychomotor agitation Speech: + loud speech; + abnormal rate/rhythm/volume of speech (rapid and hyperverbal but able to be interrupted) Affect: + tearful affect, + labile affect and + elated affect Mood: + anxious mood Thought Process: + circumstantial thought process Thought Content: reality based without delusions Suicidal Thoughts: denies suicidal thoughts Homicidal Thoughts: denies homicidal thoughts Hallucinations: no auditory hallucinations and no visual hallucinations Cognition: recent memory grossly intact, remote memory grossly intact, attention grossly intact and language grossly intact Estimated Intelligence: consistent with education level Insight: + fair insight Judgement: + limited judgement Vital Signs (Past 24 Hours) Last Vital Signs Temp 36.9 C 03/09/22 06:43 Pulse 87 03/09/22 06:44 Resp 16 03/09/22 06:43 BP 109/70 03/09/22 06:44 Pulse Ox 97 03/08/22 14:43 O2 Del Method 03/08/22 14:43 Results & Data ([facility]) Current Inpatient Medications Current Inpatient Medications: Current Inpatient Medications Acetaminophen (Acetaminophen 325 Mg Tab) 650 mg PO Q4H PRN PRN Reason: Headache or Minor Fever Stop: 04/07/22 11:53 Last Admin: 03/09/22 09:20 Dose: 650 mg Al Hydrox/Mg Hydrox/Simethicone (Aluminum/Magnesium Susp 30 Ml Udc) 30 ml PO Q4H PRN PRN Reason: GI Upset Stop: 04/07/22 11:53 Albuterol (Albuterol Hfa 8 Gm Inhaler) 1 puffs INH DAILY [facility] Stop: 04/08/22 08:59 Last Admin: 03/09/22 08:05 Dose: 1 puffs Aspirin (Aspirin 81 Mg Ectab) [facility] Stop: 04/08/22 08:59 Last Admin: 03/09/22 08:05 Dose: 81 mg Bismuth Subsalicylate (Bismuth Subsalicylate Liqd 236 Ml) 15 ml PO PRN PRN PRN Reason: Loose Stool Stop: 04/07/22 11:53 Escitalopram Oxalate (Escitalopram Oxalate 10 Mg Tab) 10 mg PO QAM [facility] Stop: 04/08/22 08:59 Last Admin: 03/09/22 08:05 Dose: 10 mg Fluticasone/Vilanterol (Fluticasone/Vilanterol 200/25mcg 14 Puffs/Inhaler) 1 puffs INH HS [facility] Stop: 04/07/22 21:59 Last Admin: 03/08/22 22:21 Dose: 1 puffs Hydroxyzine HCl (Hydroxyzine Hcl 25 Mg Tab) 50 mg PO HSZ PRN PRN Reason: Insomnia Stop: 04/07/22 11:53 Hydroxyzine HCl (Hydroxyzine Hcl 25 Mg Tab) 25 mg PO Q4H PRN PRN Reason: Anxiety Stop: 04/07/22 11:53 Ibuprofen (Ibuprofen 200 Mg Tab) 800 mg PO TID PRN PRN Reason: pain Stop: 04/08/22 09:15 Lisinopril (Lisinopril 20 Mg Tab) 20 mg PO QAM [facility] Stop: 04/08/22 08:59 Last Admin: 03/09/22 08:06 Dose: 20 mg Magnesium Hydroxide (Magnesium Hydroxide Susp 30 Ml Udc) 30 ml PO DAILY PRN PRN Reason: Constipation Stop: 04/07/22 11:53 Miscellaneous (Remove Nicoderm Patch) 1 each N/A DAILY@0859 [facility] Stop: 04/08/22 08:58 Last Admin: 03/09/22 08:04 Dose: 1 each Nicotine (Nicotine 14 Mg/24 Hr Patch) 14 mg TD QAM [facility] Stop: 04/08/22 08:59 Last Admin: 03/09/22 08:06 Dose: 14 mg Nicotine Polacrilex (Nicotine Polacrilex 2 Mg Gum) 1 piece MT PRN PRN PRN Reason: patient request Stop: 04/07/22 13:16 Quetiapine Fumarate (Quetiapine Fumarate 25 Mg Tablet) 12.5 mg PO TID PRN PRN Reason: Anxiety/Agitation Stop: 04/07/22 20:59 Last Admin: 03/08/22 18:49 Dose: 12.5 mg Quetiapine Fumarate (Quetiapine Fumarate 25 Mg Tablet) 25 mg PO HS [facility] Stop: 04/07/22 21:59 Last Admin: 03/08/22 22:20 Dose: 25 mg Sodium Chloride (Sodium Chloride 0.65% Na Soln 45 Ml ([place])) 1 - 2 sprays NA PRN PRN PRN Reason: Nasal Dryness/Congestion Stop: 04/07/22 11:53
[2022-03-09] MEDS: FLUTICASONE/VILANTEROL 200/25MCG 14 PUFFS/INHALER INH SCH ×3 (18:42→21:48)
[2022-03-09] MEDS: QUEtiapine FUMARATE 25 MG TABLET PO SCH (21:41)
[2022-03-10 05:43] LABS: Marijuana Quant, GCMS Urine 401 ng/mL (<5)
[2022-03-10] MEDS: ASPIRIN 81 MG ECTAB PO SCH (08:52)
[2022-03-10] MEDS: ALBUTEROL HFA 8 GM INHALER INH SCH (08:52)
[2022-03-10] MEDS: ESCITALOPRAM OXALATE 10 MG TAB PO SCH (08:53)
[2022-03-10] MEDS: NICOTINE 14 MG/24 HR PATCH TD SCH (08:53)
[2022-03-10] MEDS: lisinopril 20 MG TAB PO SCH (08:53)
--- NOTE | 2022-03-10 13:52 | Psychiatric Progress Note ---
Date of Service March 10, 2022 Impression / Recommendations Impression 66 yo man with no notable psychiatric history with exception of depression and anxiety well managed on low dose escitalopram for many years now with stage III carcinoid cancer and recently started on octreotide about two months ago with increased agitation, irritability, personality changes and paranoid ideation admitted on a 302 commitment. 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 There remains possibility for further advancement of his cancer leading to personality changes, but no evidence for further metastasis to brain on head CT and no other neurological symptoms so will defer necessity for further brain imaging such as MRI to his oncology team. Reviewed literature notable for some case reports of octreotide-induced agitation and paranoid ideation as well speculation that carcinoid cancer may cause elevated levels of serotonin that can lead to personality changes/irritability/psychosis. Could also be component from cannabis use which he started to help with the octreotide associated anorexia. In one of the case reports an individual of similar age responded very favorable to low dose seroquel 100mg titrated slowly over a few days with significant improvement. At this time given level of agitation prior to admission, access to a gun at home and personality change he is deemed unstable and requires psychiatric hospitalization for diagnostic clarification, safety and stabilization, medication management and development of further coping skills. MNPR due to age with cancer and increased risk of infection as well as irritability/mood lability 03/10/2022: as per Dr. Eubanks above. Presents as expansive. (1) Drug-induced psychotic disorder: (2) Paranoia: (3) Carcinoid tumor: (4) COPD (chronic obstructive pulmonary disease): (5) High blood pressure: Plan 03/10/2022: fasting labs in am, hold Lexapro given possible activation given that psychosis is mix of irritability and expansive mood. Patient declines immediate titration of Seroquel. 03/09/2022: Increase seroquel to 50mg qhs 03/08/2022: The patient was admitted to the [facility] ([facility] mental health unit) on q15 min checks (behavioral with suicide precautions) for safety. The patient will participate in group, recreational, and milieu therapies and will be offered additional individual and family sessions as clinically appropriate. -Continue escitalopram 10mg qd for now, may hold if symptoms do not respond well to seroquel -Hold mirtazapine as seroquel will help with sleep and appetite -Start seroquel 25mg qhs with additional 12.5mg TID prn for anxiety/agitation -Hold off on fasting lipid panel for now given plan for low dose and potentially time limited use -message left at [place] for his oncologist Dr. Hernández for coordination of care Inventory Assets Strengths: supportive , employed, motivated to feel better, strong rapport with his cancer providers and PCP Needs: diagnostic clarification, medication management, safety planning, additional coping skills Suicide Risk Level Suicide Risk Level: Low (q15 min observation checks) (consistently denying SI, agrees to alert nursing if he developed SI or feels unsafe) Risk Factors Assessment Male: Yes : Yes Do You Have Access To A Gun?: Yes (does have one gun at home, willing to have his remove this) Health Problems: Yes Mental Health Diagnoses: Yes Substance Use Disorders: No (in past) Previous Attempt: No Family History of Suicide: No Previous Psychiatric Hospitalization: No (dual diagnosis ) Hopelessness: No Protective Factors Assessment : Yes 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 Chief Complaint "I've never wanted to hurt anyone." Review of Systems Sleep Information Total Hours of Sleep: 9 Meal Information Percent Meal Consumed - Breakfast: 100 Percent Meal Consumed - Lunch: 100 Percent Meal Consumed - Dinner: 100 Subjective Subjective Patient was seen & assessed and interval progress reviewed with treatment team. gun remains in sealed case but has been removed from home. patient is agreeable to [place] under FMLA for wwork. He is now amenable to therapy. 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 He voiced understanding of need for aftercare prior to discharge off of a 302 commitment and need for mood stabilizer. Reported some am sedation from Seroquel but dose just increased. Physical Exam Psychiatric Orientation: alert and oriented x 3 Apperance: appropriately dressed and appropriately groomed Eye Contact: good eye contact Speech: + abnormal rate/rhythm/volume of speech (rapid and hyperverbal but able to be interrupted) Affect: + elated affect Mood: + anxious mood Thought Process: + circumstantial thought process Thought Content: reality based without delusions Suicidal Thoughts: denies suicidal thoughts Homicidal Thoughts: denies homicidal thoughts Hallucinations: no auditory hallucinations and no visual hallucinations Cognition: recent memory grossly intact, remote memory grossly intact, attention grossly intact and language grossly intact Estimated Intelligence: consistent with education level Insight: + fair insight Judgement: + limited judgement Vital Signs (Past 24 Hours) Last Vital Signs Temp 36.6 C 03/10/22 06:42 Pulse 83 03/10/22 06:42 Resp 16 03/10/22 06:42 BP 106/69 03/10/22 06:42 Pulse Ox 97 03/08/22 14:43 O2 Del Method 03/08/22 14:43 Results & Data ([facility]) Laboratory Results Laboratory Results - last 24 hr 03/07/22 18:30 U Marijuana THC Carboxy 401 H Drug Screen Comment SEE NOTE Current Inpatient Medications Current Inpatient Medications: Current Inpatient Medications Acetaminophen (Acetaminophen 325 Mg Tab) 650 mg PO Q4H PRN PRN Reason: Headache or Minor Fever Stop: 04/07/22 11:53 Last Admin: 03/09/22 09:20 Dose: 650 mg Al Hydrox/Mg Hydrox/Simethicone (Aluminum/Magnesium Susp 30 Ml Udc) 30 ml PO Q4H PRN PRN Reason: GI Upset Stop: 04/07/22 11:53 Albuterol (Albuterol Hfa 8 Gm Inhaler) 1 puffs INH DAILY [facility] Stop: 04/08/22 08:59 Last Admin: 03/10/22 08:52 Dose: 1 puffs Aspirin (Aspirin 81 Mg Ectab) 81 mg PO QAM [facility] Stop: 04/08/22 08:59 Last Admin: 03/10/22 08:52 Dose: 81 mg Bismuth Subsalicylate (Bismuth Subsalicylate Liqd 236 Ml) 15 ml PO PRN PRN PRN Reason: Loose Stool Stop: 04/07/22 11:53 Fluticasone/Vilanterol (Fluticasone/Vilanterol 200/25mcg 14 Puffs/Inhaler) 1 puffs INH HS [facility] Stop: 04/07/22 21:59 Last Admin: 03/09/22 21:48 Dose: Not Given Hydroxyzine HCl (Hydroxyzine Hcl 25 Mg Tab) 50 mg PO HSZ PRN PRN Reason: Insomnia Stop: 04/07/22 11:53 Hydroxyzine HCl (Hydroxyzine Hcl 25 Mg Tab) 25 mg PO Q4H PRN PRN Reason: Anxiety Stop: 04/07/22 11:53 Ibuprofen (Ibuprofen 200 Mg Tab) 800 mg PO TID PRN PRN Reason: pain Stop: 04/08/22 09:15 Last Admin: 03/09/22 13:45 Dose: 800 mg Lisinopril (Lisinopril 20 Mg Tab) [facility] Stop: 04/08/22 08:59 Last Admin: 03/10/22 08:53 Dose: 20 mg Magnesium Hydroxide (Magnesium Hydroxide Susp 30 Ml Udc) 30 ml PO DAILY PRN PRN Reason: Constipation Stop: 04/07/22 11:53 Miscellaneous (Remove Nicoderm Patch) 1 each N/A DAILY@0859 [facility] Stop: 04/08/22 08:58 Last Admin: 03/10/22 09:08 Dose: 1 each Nicotine (Nicotine 14 Mg/24 Hr Patch) 14 mg TD [facility] Stop: 04/08/22 08:59 Last Admin: 03/10/22 08:53 Dose: 14 mg Nicotine Polacrilex (Nicotine Polacrilex 2 Mg Gum) 1 piece MT PRN PRN PRN Reason: patient request Stop: 04/07/22 13:16 Quetiapine Fumarate (Quetiapine Fumarate 25 Mg Tablet) 12.5 mg PO TID PRN PRN Reason: Anxiety/Agitation Stop: 04/07/22 20:59 Last Admin: 03/08/22 18:49 Dose: 12.5 mg Quetiapine Fumarate (Quetiapine Fumarate 25 Mg Tablet) 50 mg PO [facility] Stop: 04/08/22 21:59 Last Admin: 03/09/22 21:41 Dose: 50 mg Sodium Chloride (Sodium Chloride 0.65% Na Soln 45 Ml ([place])) 1 - 2 sprays NA PRN PRN PRN Reason: Nasal Dryness/Congestion Stop: 04/07/22 11:53
[2022-03-10] MEDS: ECONAZOLE NITRATE 1% CRM 15 GM TUBE EXT SCH ×2 (14:43→20:52)
[2022-03-10] MEDS: FLUTICASONE/VILANTEROL 200/25MCG 14 PUFFS/INHALER INH SCH (19:01)
[2022-03-10] MEDS: QUEtiapine FUMARATE 25 MG TABLET PO SCH (20:52)
[2022-03-11 09:03] LABS: Chol HDL Ratio 2.7 (0-5)
[2022-03-11] MEDS: ASPIRIN 81 MG ECTAB PO SCH (09:04)
[2022-03-11] MEDS: ALBUTEROL HFA 8 GM INHALER INH SCH (09:04)
[2022-03-11] MEDS: ECONAZOLE NITRATE 1% CRM 15 GM TUBE EXT SCH (09:04)
[2022-03-11] MEDS: lisinopril 20 MG TAB PO SCH (09:05)
[2022-03-11] MEDS: NICOTINE 14 MG/24 HR PATCH TD SCH (09:05)
--- NOTE | 2022-03-11 12:19 | Discharge Summary ---
Date of Service March 11, 2022 History of Present Illness As per Dr. Eubanks on admission: Juan presents with worsening irritability, agitation and paranoid ideation over the last few weeks but particularly worsening over the last week in the context of stage 3 carcinoid cancer and recently started on octreotide about two months ago. He recently moved into an apartment locally but remains . He was brought to the hospital via police on a 302 warrant which was completed in the ED due to concern for risk to himself and others. The 302 petitioning statements note increased apathy toward customers, more easily agitated and at times hostile toward others and not in his normal frame of mind. The 302 petition also described his concerns that a customer at [employer] was stalking him or might kill him for which police said video footage they reviewed did not support. Juan describes working at [employer] and that he may have been more irritable with a rude customer who then alerted her who followed him when he went outside to take a smoke break and told him not to speak to his that way. Juan states he apologized but had a sense, physically, that this man meant him harm and so he asked his co-worker to alert management and requested police be called. When they arrived he acknowledges he likely was irritable and "I reacted the way I did and it was wrong" but he is adamant that he would never hurt himself or anyone else. He notes that since starting the octreotide he's experienced side effects but that over the last few weeks they have gotten worse and he notes "this is not my normal personality but I'm just really irritable" and becomes tearful noting frustration that the medication is needed to help his cancer but that he feels he cannot take it anymore as "I wouldn't wish this drug on my worst enemy". He is currently prescribed psychiatric medications of escitalopram, which he's taken for about 5-10 years, for depression and anxiety and his PCP recently added mirtazapine 15mg qhs to help with cancer associated loss of appetite. Psychiatric ROS notable for no prior history of yue nor psychosis. Physical Exam Psychiatric See admission H&P and DOD assessment. Vital Signs (Past 24 Hours) Last Vital Signs Temp 36.8 C 03/11/22 06:36 Pulse 101 H 01/03/23 09:54 Resp 18 03/11/22 09:54 BP 130/77 03/11/22 09:54 Pulse Ox 97 03/08/22 14:43 O2 Del Method 03/08/22 14:43 Principal Diagnosis medication induced psychosis Psychiatric Data See daily stay summary. In short, safety was maintained and the patient was cooperative with care. Medication changes included discontinuation of Remeron in favor of a trial of Seroquel and they tolerated this well. Lexapro was held for ongoing hyperverbal speech/expansive mood. SW communicated with (ex) re: removal of weapon and his friend with home he will be staying with for extra support. [place] paperwork was completed for the month of March and he should not return to work until cleared by an outpatient treatment provider. 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 A safety plan was completed prior to discharge. He did experience 3 nosebleeds on the am of discharge. The 3rd lasted >1 hr. and possible packing was discussed with hospitalist. It was recommended that he stop ASA until f/u with PCP and if bleed restarts, he understands that he can try Afrin (that was ordered but not needed to administer here) and/or go directly to ED. Day of Discharge Assessment Today the patient voices readiness for discharge and are no longer meeting criteria for involuntary psychiatric commitment. They note improvement in mood and continue to deny thoughts to harm self or others. Thoughts more organized and he was no longer having pressured speech. There is no ongoing evidence of impaired reality testing, he is behaviorally appropriate and attending to ADLs. He agrees to take mediations as prescribed and keep follow-up appointments. As a pharmacist, he was particularly knowledgeable about potential discontinuation syndrome from Lexapro and need for longer term monitoring with Seroquel. They are stable for discharge to outpatient level of care. Transition of Care Transition Of Care Record: was reviewed with the patient Advance Directives Advance Directives Information Provided: Yes Advance Directives: No Mental Health Advance Directive: No Advance Directives on File: No Living Will: No Power of New Car Get Ready Mechanic: No Advance Directives Reason:: Declines as Mental Health Visit. Suicide Risk Level Suicide Risk Level Comments: Suicide risk at discharge is deemed low as the patient is no longer requiring 24-hr monitoring, has a safety plan, and is free of suicidal ideation at discharge. 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 [employer]) Stable Relationships: Yes Supportive Family: Yes Good Rapport with Provider: Yes Tobacco Cessation at Discharge Tobacco Cessation Medication Prescribed at Discharge: Offered & Pt Refused Total Time Total Time Spent: Greater Than 30 Minutes Total Time Includes: Examination of the patient, Discharge Planning, Medication Reconciliation and Communication with other providers Discharge Data Lab Results 03/07/22 03/07/22 03/07/22 18:13 18:14 18:14 WBC 11.50 H RBC 4.83 Hgb 15.8 Hct 46.3 MCV 95.9 MCH 32.7 MCHC 34.1 RDW Std Deviation 50.4 H RDW Coeff of Christo 14.4 Plt Count 225 MPV 10.0 Immature Gran % (Auto) 0.3 Neut % (Auto) 80.3 Lymph % (Auto) 11.4 Door % (Auto) 7.4 Eos % (Auto) 0.3 Baso % (Auto) 0.3 Neut # (Auto) 9.23 H Lymph # (Auto) 1.31 Door # (Auto) 0.85 H Eos # (Auto) 0.04 Baso # (Auto) 0.04 Immature Gran # (Auto) 0.03 H Sodium 141 Potassium 4.1 Chloride 106 Carbon Dioxide 29 Anion Gap 6 BUN 16 Creatinine 0.97 Est Cr Clr Drug Dosing 79.0 Est GFR ( Amer) 95.2 Est GFR (Non-Af Amer) 82.2 BUN/Creatinine Ratio 16.5 Glucose 111 H Fasting Glucose Calcium 9.6 Total Bilirubin 0.5 AST 30 ALT 29 Alkaline Phosphatase 82 Total Protein 7.6 Albumin 4.7 Globulin 2.9 Albumin/Globulin Ratio 1.6 Triglycerides Cholesterol LDL Cholesterol, Calc VLDL Cholesterol, Calc HDL Cholesterol Cholesterol/HDL Ratio TSH Urine Color Urine Appearance Urine pH Ur Specific Nabb Urine Protein Urine Glucose (UA) Urine Ketones Urine Blood Urine Nitrite Urine Bilirubin Urine Urobilinogen Ur Leukocyte Esterase Urine WBC (Auto) Urine RBC (Auto) U Hyaline Cast (Auto) U Epithel Cells (Auto) Urine Bacteria (Auto) Salicylates Urine Opiates Screen Ur Methadone, Qual Acetaminophen Urine Barbiturates Ur Phencyclidine (PCP) U Amphetamin/Meth Scrn MDMA (Ecstasy) Screen U Benzodiazepines Scrn Ur Cocaine Metabolite U Marijuana (THC) Screen U Marijuana THC Carboxy Drug Screen Comment Ethyl Alcohol mg/dL SARS-CoV-2, RNA, NAAT NEGATIVE 03/07/22 03/07/22 03/07/22 18:14 18:14 18:14 WBC RBC Hgb Hct MCV MCH MCHC RDW Std Deviation RDW Coeff of Christo Plt Count MPV Immature Gran % (Auto) Neut % (Auto) Lymph % (Auto) Door % (Auto) Eos % (Auto) Baso % (Auto) Neut # (Auto) Lymph # (Auto) Door # (Auto) Eos # (Auto) Baso # (Auto) Immature Gran # (Auto) Sodium Potassium Chloride Carbon Dioxide Anion Gap BUN Creatinine Est Cr Clr Drug Dosing Est GFR ( Amer) Est GFR (Non-Af Amer) BUN/Creatinine Ratio Glucose Fasting Glucose Calcium Total Bilirubin AST ALT Alkaline Phosphatase Total Protein Albumin Globulin Albumin/Globulin Ratio Triglycerides Cholesterol LDL Cholesterol, Calc VLDL Cholesterol, Calc HDL Cholesterol Cholesterol/HDL Ratio TSH 0.746 Urine Color Urine Appearance Urine pH Ur Specific Nabb Urine Protein Urine Glucose (UA) Urine Ketones Urine Blood Urine Nitrite Urine Bilirubin Urine Urobilinogen Ur Leukocyte Esterase Urine WBC (Auto) Urine RBC (Auto) U Hyaline Cast (Auto) U Epithel Cells (Auto) Urine Bacteria (Auto) Salicylates < 3.0 L Urine Opiates Screen Ur Methadone, Qual Acetaminophen < 3 L Urine Barbiturates Ur Phencyclidine (PCP) U Amphetamin/Meth Scrn MDMA (Ecstasy) Screen U Benzodiazepines Scrn Ur Cocaine Metabolite U Marijuana (THC) Screen U Marijuana THC Carboxy Drug Screen Comment Ethyl Alcohol mg/dL < 10.0 SARS-CoV-2, RNA, NAAT 03/07/22 03/07/22 03/07/22 18:30 18:30 18:30 WBC RBC Hgb Hct MCV MCH MCHC RDW Std Deviation RDW Coeff of Christo Plt Count MPV Immature Gran % (Auto) Neut % (Auto) Lymph % (Auto) Door % (Auto) Eos % (Auto) Baso % (Auto) Neut # (Auto) Lymph # (Auto) Door # (Auto) Eos # (Auto) Baso # (Auto) Immature Gran # (Auto) Sodium Potassium Chloride Carbon Dioxide Anion Gap BUN Creatinine Est Cr Clr Drug Dosing Est GFR ( Amer) Est GFR (Non-Af Amer) BUN/Creatinine Ratio Glucose Fasting Glucose Calcium Total Bilirubin AST ALT Alkaline Phosphatase Total Protein Albumin Globulin Albumin/Globulin Ratio Triglycerides Cholesterol LDL Cholesterol, Calc VLDL Cholesterol, Calc HDL Cholesterol Cholesterol/HDL Ratio TSH Urine Color Dark Yellow Urine Appearance Clear Urine pH 6.5 Ur Specific Nabb 1.025 Urine Protein Trace H Urine Glucose (UA) Negative Urine Ketones Negative Urine Blood 1+ H Urine Nitrite Negative Urine Bilirubin Negative Urine Urobilinogen Negative Ur Leukocyte Esterase Negative Urine WBC (Auto) 1-5 Urine RBC (Auto) 10-30 H U Hyaline Cast (Auto) 1-5 U Epithel Cells (Auto) 5-10 H Urine Bacteria (Auto) Negative Salicylates Urine Opiates Screen Neg Ur Methadone, Qual Neg Acetaminophen Urine Barbiturates Neg Ur Phencyclidine (PCP) Neg U Amphetamin/Meth Scrn Neg MDMA (Ecstasy) Screen Neg U Benzodiazepines Scrn Neg Ur Cocaine Metabolite Neg U Marijuana (THC) Screen Pos H U Marijuana THC Carboxy 401 H Drug Screen Comment SEE NOTE Ethyl Alcohol mg/dL SARS-CoV-2, RNA, NAAT 03/11/22 07:51 WBC RBC Hgb Hct MCV MCH MCHC RDW Std Deviation RDW Coeff of Christo Plt Count MPV Immature Gran % (Auto) Neut % (Auto) Lymph % (Auto) Door % (Auto) Eos % (Auto) Baso % (Auto) Neut # (Auto) Lymph # (Auto) Door # (Auto) Eos # (Auto) Baso # (Auto) Immature Gran # (Auto) Sodium Potassium Chloride Carbon Dioxide Anion Gap BUN Creatinine Est Cr Clr Drug Dosing Est GFR ( Amer) Est GFR (Non-Af Amer) BUN/Creatinine Ratio Glucose Fasting Glucose 106 H Calcium Total Bilirubin AST ALT Alkaline Phosphatase Total Protein Albumin Globulin Albumin/Globulin Ratio Triglycerides 102 Cholesterol 173 LDL Cholesterol, Calc 90 VLDL Cholesterol, Calc 20 HDL Cholesterol 63 Cholesterol/HDL Ratio 2.7 TSH Urine Color Urine Appearance Urine pH Ur Specific Nabb Urine Protein Urine Glucose (UA) Urine Ketones Urine Blood Urine Nitrite Urine Bilirubin Urine Urobilinogen Ur Leukocyte Esterase Urine WBC (Auto) Urine RBC (Auto) U Hyaline Cast (Auto) U Epithel Cells (Auto) Urine Bacteria (Auto) Salicylates Urine Opiates Screen Ur Methadone, Qual Acetaminophen Urine Barbiturates Ur Phencyclidine (PCP) U Amphetamin/Meth Scrn MDMA (Ecstasy) Screen U Benzodiazepines Scrn Ur Cocaine Metabolite U Marijuana (THC) Screen U Marijuana THC Carboxy Drug Screen Comment Ethyl Alcohol mg/dL SARS-CoV-2, RNA, NAAT Hospital Course (1) Drug-induced psychotic disorder: (2) Paranoia: (3) Carcinoid tumor: (4) COPD (chronic obstructive pulmonary disease): (5) High blood pressure: Plan 03/10/2022: fasting labs in am, hold Lexapro given possible activation given that psychosis is mix of irritability and expansive mood. Patient declines immediate titration of Seroquel. 03/09/2022: Increase seroquel to 50mg qhs 03/08/2022: The patient was admitted to the [facility] on q15 min checks (behavioral with suicide precautions) for safety. The patient will participate in group, recreational, and milieu therapies and will be offered additional individual and family sessions as clinically appropriate. -Continue escitalopram 10mg qd for now, may hold if symptoms do not respond well to seroquel -Hold mirtazapine as seroquel will help with sleep and appetite -Start seroquel 25mg qhs with additional 12.5mg TID prn for anxiety/agitation -Hold off on fasting lipid panel for now given plan for low dose and potentially time limited use -message left at [facility] for his oncologist Dr. Hernández for coordination of care Mental Health & Subst Abuse Tx Psychiatrist Name of Psychiatrist: Lenny Haile Psychiatrist's Time of Appointment with Psychiatrist: Intake will follow up to schedule within 2 weeks. Psychiatric Appointment Comment: If you do not hear back within 2 weeks, please contact to schedule. Therapist Name of Therapist: Sunshine Sagastume Therapist's Time of Therapist Appointment: 12:30 PM Therapy Appointment Comment: [address], [address], [place] [address] Post Discharge Appointments Primary Care Physician Name Of Family Doctor/PCP: Matheus Hawthorne - Dr. Boudreaux Primary Care Time of Appointment with PCP: 9:25 AM Provider Appointment Comment: [address] [place] [address] Specialist Name of Specialist: [facility] [place] - Jaqueline Tarango PA-C Phone Number for Specialist: [phone] Date of Appointment with Specialist: 04/03/21 Time of Appointment with Specialist: 9:30 AM Specialty Appointment Comment: [address] [place] [id number] Smoking Cessation Counseling Tobacco Cessation Medication Prescribed at Discharge: Offered & Pt Refused Contact Information Discharge Discharge Address: [address] [place] [id number] Discharge Plan Discharge Items Patient Disposition: Home - Self-Care Reason For Visit: UNSPECIFIED MOOD DISORDER Discharge Diagnosis: medication-induced psychotic disorder Activity: Resume your previous activity Non-emergency contact: Primary Care Provider, Psychiatrist and Therapist Call non-emergency contact if: you have any medication questions and your symptoms worsen Follow-up/Referrals: Pino Boudreaux MD [Primary Care Provider] - Diet: Regular Addtl Attending Provider Instructions: SPECIAL CARE INSTRUCTIONS: 1. Follow through with your scheduled aftercare appointments. If unable to keep an appointment, please call to reschedule. 2. Take your medication only as prescribed. Medication should not be changed or stopped without the approval of your doctor. In the event of worsening symptoms or concerns about side effects, contact your doctor immediately. 3. Utilize new healthy coping skills, anger management skills, and stress management skills learned during your hospitalization. Journal feelings and process them with a support person. Identify stressors or situations that may result in relapse, deterioration or inappropriate behaviors and develop a plan to deal with those issues. 4. If your coping skills are ineffective and you are in crisis, contact your outpatient providers for direction. If unable to reach your providers, please call the [facility] CRISIS LINE AT , go to the [facility] walk-in center at [address], [address], [place], or go to the closest Emergency Room. 5. Avoid alcohol and un-prescribed drugs. 6. You have been provided with the Mental Health Advance Directives Pamphlet for your review. 7. Your condition is stable for discharge to outpatient level of care, but recovery is an ongoing process. Ifthoughts to harm yourself or others return, follow the safety plan developed during your stay. Planning for a safe return home includes securing weapons. Our treatment team recommends weaponsbe removed from the home until your outpatient provider reassesses your progress. In rare cases where the items themselvescannot be removed, guns and ammunitionshould be secured separatelyand keys stored by a reliable personoutside of the home. If you were admitted on an involuntary commitment, the police or other legal authorities may be involved in this process. AFTERCARE APPOINTMENTS: * Please call your insurance company prior to your scheduled appointment to confirm your aftercare providers are covered. Take your insurance information to your appointments. WHO TO CALL AND WHEN: Medical Emergencies: For questions or emergencies related to your hospital stay, please contact the Inpatient Behavioral Health Unit at [phone]. A cabin supervisor is on-call 29/09 for the Behavioral Health Unit for emergencies At any time you feel your situation is an emergency, you may also call 911 immediately. Pending Studies at Discharge: No Stand-Alone Forms: [facility], Smoking Cessation Medications and DC Order Prescriptions: New quetiapine 25 mg Tablet 50 mg PO HS Qty: 30 0RF econazole 1 % Cream 1 applic EXT BID Qty: 1 0RF Continued lisinopril 20 mg Tablet 20 mg PO QAM Airborne Gummy 250-11.66 mg Tablet,Chewable 1 tab PO DAILY fluticasone propion-salmeterol [Advair Diskus] 250-50 mcg/dose blister with device 1 inh INHALATION DAILY albuterol sulfate 90 mcg/actuation HFA aerosol inhaler 90 mcg INHALATION DAILY Discontinued escitalopram oxalate [Lexapro] 5 mg tablet 10 mg PO QAM octreotide acetate [Sandostatin] 100 mcg/mL Solution 0 mcg IV DAILY Rx Instructions: PT UNSURE OF DOSE, NURSE DID FIRST INJECTION ABOUT 2 WKS AGO. aspirin 81 mg Tablet,Delayed Release (Dr/Ec) 81 mg PO DAILY mirtazapine 15 mg tablet 15 mg PO HS Discharge Orders: Discharge Order (Routine); Ordered 03/11/22 Ordered By: Loretta Smith Admission Data Admit Date/Time: 03/08/22 11:54 Attending Provider: Loretta Smith Admit Provider: Sweetie Eubanks Primary Care Provider: Rozick,Pino S. Other Providers: Sweetie Eubanks ; Loretta Smith ; Jessie Melo I. ; Sharonda Brown ; Tiffany Barnes ; Soy Moss ; Augie Sellers ; Main Charlton ; Barry Anderson ; Trena Galaviz ; Libia Bunch I. ; Jennifer Russell ; Junior Llamas ; Bhupendra Kenyon ; Wolf Keyes ; Nora Flores ; Germain Marquez ; Marisa Combs ; Eileen Pollard ; Lanre Lynn ; Tejas Swift ; Kev Milian ; Abbie Mclaughlin ; Eva Nice ; Yissel Garay ; Veronica Garner ; Chapito Mi ; Polo Myrick ; Cr Sinclair ; Ann-Marie Lee Other Interventions: PSY Interdisciplinary Discharge Planning Last Done: 03/11/22 10:24 Coding Level of Care Code 70836 D/C day mgmt > 30 min Diagnoses Drug-induced psychotic disorder F19.959 Paranoia F22 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 COPD (chronic obstructive pulmonary disease) J44.9 High blood pressure I10
[2022-03-11] MEDS ORDERED: OXYMETAZOLINE 0.05% 30 ML BTL ONE (13:12)
--- NOTE | 2022-03-11 13:12 | Communication Note ---
Date of Service: March 11, 2022 patient's nose has been recurrent bleed for >1 hr, gushing, still dripping despite pressure/ice. [facility] service for recs re: packing and also for recs re: ASA. VINOD Pollard and supervising physician since no CAD or stents he can d/c ASA and f/u with PCP in 1 week. Suggested trial of [facility] nosebleed protocol with contact with ED re: packing if persistent.
[2022-03-11] MEDS: ACETAMINOPHEN 325 MG TAB PO PRN (14:37)
== END 2022-03-11 16:50 | disposition home or self-care (01) | DRG 897 ==
LOC: ED 17:33 → SUATTDRO 03-08 11:54 → 3S 03-08 11:54 → ED 03-08 13:57
DX: F17.210 Nicotine dependence, cigarettes, uncomplicated; Z85.46 Personal history of malignant neoplasm of prostate; I10 Essential (primary) hypertension; Z88.2 Allergy status to sulfonamides; Z88.8 Allergy status to other drugs, medicaments and biological substances; J44.9 Chronic obstructive pulmonary disease, unspecified; Z79.82 Long term (current) use of aspirin; Z79.899 Other long term (current) drug therapy; D3A.00 Benign carcinoid tumor of unspecified site; F22 Delusional disorders; Z88.1 Allergy status to other antibiotic agents; F19.959 Other psychoactive substance use, unspecified with psychoactive substance-induced psychotic disorder, unspecified